=== PATIENT | female | born 1955 | race Caucasian/White ===

== ENCOUNTER 2018-01-01 08:50 | Outpatient (CLI) | payer OTHER, SELFPAY ==
[2018-01-01] VITALS (16 sets, daily range): BP systolic 121–155; BP diastolic 49–96; PULSE 82–93; RESP 16–18; TEMP 36.2; O2SAT 95–100
--- NOTE | 2018-01-01 08:51 | DI.RAD.S_ITS ---
PROCEDURE: PAIN L/S TRANSFORAMINAL INJECT INDICATIONS: LUMBOSACRAL RIDUCULOPATHY FINDINGS: Fluoroscopic spot filming was performed to verify placement of spinal needles at the L4-L5 level(s), as labeled on the films. Appropriate location(s) of the needle tip(s) was confirmed by injection of iodinated contrast. IMPRESSION: Fluoroscopy for pain management. Dictated by: Mary Vick M.D. on 01/01/2018 at 16:27 Approved by: Mary Vick M.D. on 01/01/2018 at 16:28
--- NOTE | 2018-01-01 10:02 | P.PCN_ITS ---
Procedures Date/Time Date of procedure: 01/01/18 Time of procedure: 10:30 General Procedure description: PREOP DIAGNOSIS 1. FORMAINAL STENOSIS WITH LE SYMPTOMS, POST OP DIAGNOSIS 1. FORMAINAL STENOSIS WITH LE SYMPTOMS, PROCEDURES 1.FLUOROSCOPICALLY GUIDED CONTRAST CONTROLLED TRANSFORAMINAL EPIDURAL STEROID INJECTION - RIGHT L4/5 TFESI PHYSICIAN: Luc Ibanez DO INDICATIONS: Ophelia is referred by for treatment of Foraminal Stenosis with Right LE Symptoms FINDINGS Foraminal Nerve Root Compression secondary to disc disease and facet hypertrophy DESCRIPTION OF PROCEDURE Following denial of allergy and review of potential side effects and complications, including, but not necessarily limited to, infection, allergic reaction, local tissue breakdown, stroke, temporary or permanent nerve injury, paralysis, and possible , the patient indicated that the patient understood and agreed to proceed. An informed consent document was signed by the patient, witnessed by a nurse, and placed in the patient's chart. Additionally, other treatment options including medications, modalities, and physical therapy were reviewed with the patient. Per patient request IV conscious sedation was administered via 5mg Versed. The patient remained conversant throughout the procedure with stable vital signs. In the prone position following sterile prep and drape of the lumbar region, the right L4/5 posterior neuroforamen was identified fluoroscopically. The skin was anesthetized via a 25-gauge 1.5-inch needle with 1% lidocaine solution. At this point, a 25-gauge 3.5-inch spinal needle was atraumatically introduced and advanced under fluoroscopic guidance through the posterior right L4/5 neuroforamen to approximately the anterior aspect of the canal. Depth was confirmed on lateral view. Following negative aspiration, injection of approximately 1.5 cc of Isovue 200 under live fluoroscopy in the AP view confirmed excellent flow along the nerve root, into the epidural space without vascular or intrathecal uptake observed Radiological data, including multiple fluoroscopic views of the lumbosacral spine, reveal a spinal needle at the right L4/5 posterior neuroforamen. Subsequent views show flow of contrast material flowing superiorly and inferiorly along the nerve root confirming epidural flow. Subsequently, a test dose of 1.5 cc of 1% lidocaine solution was administered and patient was observed for two minutes for signs or symptoms of complications , including abdominal pain, shortness of breath, bilateral upper or lower extremity weakness, nausea and vomiting, prior to steroid injection. At this point, a total of 3 cc or 20 mg of dexamethasone and 80mg Depo Medrol was injected without incident. The patient was then transferred to the recovery area where they were observed for an appropriate time after the injection. The patient reported a VAS score of 7 prior to the procedure and a post-procedure VAS of 0. Total Fluoroscopy Time: 20.9 seconds Total Conscious Sedation Time: 24min POST OP INSTRUCTIONS The patient was provided a Pain Log to continue to record their response to the target-specific procedure prior to follow-up visit with their referring physician. Additionally, specific post-injection care instructions and a contact number to our office were provided if concerns arise regarding possible complications associated with the procedure are suspected. Luc Ibanez, Complications: none
[2018-01-01] MEDS: MIDAZOLAM 5 MG/5 ML VIAL IV (10:06)
[2018-01-01] MEDS: IOPAMIDOL 15 ML VIAL 3 ML INJ (10:12)
[2018-01-01] MEDS: methylPREDNISolone acetate 80 MG/ML VIAL INJ (10:12)
[2018-01-01] MEDS: DEXAMETHASONE 10 MG/ML VIAL 20 MG INJ (10:12)
[2018-01-01] MEDS: BUPIVACAINE 0.25% (PF) 30 ML VIAL INJ (10:12)
[2018-01-01] MEDS: LIDOCAINE 1% 20 ML INJ 5 ML INJ (10:18)
== END 2018-01-01 11:30 | disposition home or self-care (01) ==
PROVIDERS: PCP Internal Medicine; Visit Provider Physical Medicine & Rehabilitation
DX: M54.17 Radiculopathy, lumbosacral region (principal); M51.36 Other intervertebral disc degeneration, lumbar region
CPT/HCPCS: 64483; 99152; 99153; J1040; J1100; J2250

== ENCOUNTER 2018-04-16 11:01 | Outpatient (CLI) | payer OTHER, SELFPAY ==
[2018-04-16] VITALS (9 sets, daily range): BP systolic 117–149; BP diastolic 84–97; PULSE 80–85; RESP 16–18; TEMP 36.1; O2SAT 96–99
--- NOTE | 2018-04-16 11:03 | DI.RAD.S_ITS ---
PROCEDURE: PAIN L/S FACET INJ/BLK 1ST TRICE COMPARISON: None. INDICATIONS: LUMBOSACRAL SPONDYLOSIS FINDINGS: Right-sided L4-5 and L5-S1 needle tip localization is documented. IMPRESSION: Successful right-sided needle tip localization for facet epidural steroid injection. Dictated by: Tomas Downs M.D. on 04/16/2018 at 12:57 Approved by: Tomas Downs M.D. on 04/16/2018 at 12:58
[2018-04-16] MEDS: MIDAZOLAM 5 MG/5 ML VIAL IV (11:40)
[2018-04-16] MEDS: IOPAMIDOL 15 ML VIAL 3 ML INJ (11:53)
[2018-04-16] MEDS: LIDOCAINE 1% 20 ML INJ 10 ML INJ (11:54)
[2018-04-16] MEDS: BETAMETHASONE 30 MG/5 ML MDV 12 MG INJ (11:54)
[2018-04-16] MEDS: BUPIVACAINE 0.5% (PF) VIAL 2 ML INJ (11:54)
--- NOTE | 2018-04-16 12:02 | PC.NURSE ---
pt safely got off table and into the w/c for transport to the pre procedure room. VSS, no apparent distress and pt on room air maintaining her oxygen.
--- NOTE | 2018-04-16 12:06 | P.PCN_ITS ---
Procedures Date/Time Date of procedure: 04/16/18 Time of procedure: 12:05 General Procedure description: PREOP DIAGNOSIS 1. FACET ARTHROPATHY 2. AXIAL LBP 3. MULTILEVEL DDD POST OP DIAGNOSIS 1. FACET ARTHROPATHY 2. AXIAL LBP 3. MULTILEVEL DDD PROCEDURES 1. FLUORSCOPICALLY GUIDED CONTRAST CONTROLLED FACET JOINT INJECTIONS BILATERAL L4/5, L5/S1 PHYSICIAN: Luc Ibanez, DO INDICATIONS Ophelia is referred by Dr. Garland for treatment of Axial LBP FINDINGS Multilevel Facet Arthropathy with Clinically significant axial LBP DESCRIPTION OF PROCEDURE Fluoroscopically guided, contrast-controlled bilateral L4/5, L5/S1 facet joint injections. Following denial of allergy and review of potential side effects and complications, including, but not necessarily limited to, infection, allergic reaction, local tissue breakdown, stroke, temporary or permanent nerve injury, paralysis, and possible , the patient indicated that the patient understood and agreed to proceed. An informed consent document was signed by the patient, witnessed by a nurse, and placed in the patient's chart. Additionally, other treatment options including medications, modalities, and physical therapy were reviewed with the patient. After review of previous anaesthesic history and IV conscious sedation the patient was deemed safe to proceed with todays procedure with IV conscious sedation as ASA class II designation. Safety time-out was performed to confirm patient ID, procedure to be performed and site of procedure. IV sedation was accomplished with a combination of 5mg was administered by the RN after DO order , titrated to patient comfort during the course of the procedure while the patient remained responsive to all verbal commands In the prone position, following sterile prep and drape of the lumbar region, the posterior aspect of the L4/5, L5/S1 facet joints were identified fluoroscopically. The skin was anesthetized via a 25-gauge 1.5-inch needle with 1% lidocaine solution into the corresponding facet joints. At this point, a 22-gauge 3.5-inch spinal needle was atraumatically introduced and advanced under fluoroscopic guidance into the corresponding facet joints. Following negative aspiration, injections of approximately 0.2-cc of Isovue 200 confirmed interarticular placement without vascular uptake. The identical procedure was then performed at the L4/5, L5/S1 facet joints on the left. Radiological data, including multiple fluoroscopic views of the lumbosacral spine, reveal a spinal needle at the L4/5, L5/S1 facet joints bilaterally. Subsequent views show flow of contrast material both superiorly and inferiorly within the joint space without vascular or intrathecal uptake. At this point, a total of 0.5 cc including a mixture of 0.25cc Marcaine and 0.25cc betamethasone was injected without complication into each of the corresponding facet joints. The patient tolerated the procedure well without signs or symptoms of complications prior to transfer to the recovery area continued monitoring without incident. The patient was then transferred to the recovery area where they were observed for an appropriate period of time after the injection. The patient reported a VAS score of 7 prior to the procedure and a post- procedure VAS of 0. Total Fluoroscopy Time: 20.3 seconds Total Conscious Sedation Time: 24min POST OP INSTRUCTIONS The patient was provided a Pain Log to continue to record their response to the target-specific procedure prior to follow-up visit with their referring physician. Additionally, specific post-injection care instructions and a contact number to our office were provided if concerns arise regarding possible complications associated with the procedure are suspected. Luc Ibanez, Complications: none
--- NOTE | 2018-04-16 12:08 | PC.NURSE ---
pt arrived in post op area in stable condition
== END 2018-04-16 12:25 | disposition home or self-care (01) ==
LOC: RAD 11:02
PROVIDERS: PCP Internal Medicine; Visit Provider Physical Medicine & Rehabilitation
DX: M51.16 Intervertebral disc disorders with radiculopathy, lumbar region (principal); M51.17 Intervertebral disc disorders with radiculopathy, lumbosacral region; M47.26 Other spondylosis with radiculopathy, lumbar region; M47.27 Other spondylosis with radiculopathy, lumbosacral region; M54.5 Low back pain
CPT/HCPCS: 64493; 64494; 99152; J0702; J2250

== ENCOUNTER 2018-06-11 09:27 | Outpatient (CLI) | payer OTHER, SELFPAY ==
--- NOTE | 2018-06-11 09:32 | DI.RAD.S_ITS ---
PROCEDURE: PAIN L/S FACET INJ/BLK 1ST TRICE COMPARISON: [facility], , PAIN L/S FACET INJ/BLK 1ST TRICE, 04/16/2018, 11:53. INDICATIONS: RADICULOPATHY FINDINGS: Fluoroscopic spot filming was performed to verify placement of spinal needles at the L4, L5, S1 level(s), as labeled on the films. Appropriate location(s) of the needle tip(s) was confirmed by injection of iodinated contrast. Dictated by: Randy Upton M.D. on 06/11/2018 at 16:33 Approved by: Randy Upton M.D. on 06/11/2018 at 16:34
[2018-06-11 10:03] VITALS: BP 129/87; PULSE 83; RESP 18; TEMP 36.6; O2SAT 96
[2018-06-11] MEDS: MIDAZOLAM 5 MG/5 ML VIAL IV (10:38)
[2018-06-11 10:40] VITALS: BP 133/90; PULSE 86; RESP 16; O2SAT 96
[2018-06-11 10:45] VITALS: BP 115/76; BP 127/77; PULSE 85; PULSE 89; RESP 17; RESP 18; O2SAT 94; O2SAT 95
[2018-06-11 10:50] VITALS: BP 121/77; PULSE 84; RESP 15; O2SAT 94
[2018-06-11] MEDS: LIDOCAINE 1% 20 ML INJ 10 ML INJ (10:58)
[2018-06-11] MEDS: BUPIVACAINE 0.5% (PF) VIAL 2 ML INJ (10:58)
[2018-06-11] MEDS: IOPAMIDOL 15 ML VIAL 3 ML INJ (10:58)
[2018-06-11] MEDS: BETAMETHASONE 30 MG/5 ML MDV 12 MG INJ (10:59)
--- NOTE | 2018-06-11 11:01 | PM.PROC.1 ---
Procedures Date/Time Date of procedure: 06/11/18 Time of procedure: 11:01 General Procedure description: POST OP DIAGNOSIS 1. FACET ARTHROPATHY PROCEDURES 1. BILATERAL- L4, L5 and S1 MB BLOCKS PHYSICIAN: DO YARIEL Young Ophelia is referred by for treatment of Bilateral Axial LBP. DESCRIPTION OF PROCEDURE Fluoroscopically guided, contrast-controlled bilateral L4, L5 and S1 medial branch blocks with 0.5cc of 0.5% Marcaine. Following denial of allergy and review of potential side effects and complications, including, but not necessarily limited to, infection, allergic reaction, local tissue breakdown, nerve injury, paralysis, stroke and possible , the patient indicated that the patient understood and agreed to proceed. An informed consent document was signed by the patient, witnessed by a nurse, and placed in the patient's chart. After review of previous anaesthesic history and IV conscious sedation the patient was deemed safe to proceed with todays procedure with IV conscious sedation as ASA class I
--- NOTE | 2018-06-11 11:02 | PC.NURSE ---
pt tolerated procedure well. able to get off table with one person stand by assist. Pt transferred to pre procedure room via wheelchair and handed off care to Mima CHEUNG for continued monitoring.
[2018-06-11 11:07] VITALS: BP 119/81; PULSE 86; RESP 18; O2SAT 97
--- NOTE | 2018-06-11 11:08 | PC.NURSE ---
accepted care of pt in post proc area in stable condition
[2018-06-11 11:13] VITALS: BP 119/81; PULSE 88; RESP 18; O2SAT 95
--- NOTE | 2018-06-12 16:32 | PC.NURSE ---
Follow up call made and pt reports she is doing really well. She mentioned her hands were shaky for time this morning so she went back to bed and it went away. Otherwise everything is good.
== END 2018-06-11 11:32 | disposition home or self-care (01) ==
LOC: RAD 09:30
PROVIDERS: PCP Internal Medicine; Visit Provider Physical Medicine & Rehabilitation
DX: M47.816 Spondylosis without myelopathy or radiculopathy, lumbar region (principal); M47.817 Spondylosis without myelopathy or radiculopathy, lumbosacral region
CPT/HCPCS: 64493; 64494; 99152; J0702; J2250

== ENCOUNTER 2018-08-06 10:19 | Outpatient (CLI) | payer OTHER, SELFPAY ==
[2018-08-06] VITALS (14 sets, daily range): BP systolic 106–138; BP diastolic 57–93; PULSE 82–89; RESP 16–18; TEMP 36.4; O2SAT 94–100
--- NOTE | 2018-08-06 10:20 | DI.RAD.S_ITS ---
PROCEDURE: PAIN L/S MED/LAT N RFA INDICATIONS: RADICULOPATHY FINDINGS: Fluoroscopic spot filming was performed to verify placement of spinal needles at the L4, L5 and S1 level(s), as labeled on the films. Appropriate location(s) of the needle tip(s) was confirmed by injection of iodinated contrast. Dictated by: Randy Upton M.D. on 08/06/2018 at 12:43 Approved by: Randy Upton M.D. on 08/06/2018 at 12:46
[2018-08-06] MEDS: MIDAZOLAM 5 MG/5 ML VIAL IV (11:00)
[2018-08-06] MEDS: LIDOCAINE 1% 20 ML INJ 10 ML INJ (11:13)
[2018-08-06] MEDS: BETAMETHASONE 30 MG/5 ML MDV 12 MG INJ (11:15)
[2018-08-06] MEDS: BUPIVACAINE 0.5% (PF) VIAL 5 ML INJ (11:16)
[2018-08-06] MEDS: fentaNYL 100 MCG/2 ML INJ IV (11:16)
--- NOTE | 2018-08-06 11:52 | PC.NURSE ---
ASSISTING PT OFF TABLE AND TRANSPORTING PT TO POST PROC AREA IN STABLE CONDITION
--- NOTE | 2018-08-06 11:57 | P.PCN_ITS ---
Procedures Date/Time Date of procedure: 08/06/18 Time of procedure: 11:57 General Procedure description: PREOP DIAGNOSIS 1. RECALCITRANT FACET ARTHROPATHY, POST OP DIAGNOSIS 1. RECALCITRANT FACET ARTHROPATHY PROCEDURES 1. BILATERAL L4 AND L5 MEDIAL BRANCH RADIOFREQUENCY NEUROTOMY AND S1 DORSAL RAMUS BRANCH RADIOFREQUENCY NEUROTOMY, PHYSICIAN: Luc Ibanez DO INDICATIONS: Ophelia is referred by for treatment of facet arthropathy. DESCRIPTION OF PROCEDURE Right L4 and L5 medial branch radiofrequency neurotomy and right S1 dorsal ramus radiofrequency neurotomy under fluoroscopy with conscious sedation. The patient is well known to this clinic having undergone previous facet injections with good but temporary relief. The patient has experienced appropriate, concordant relief with previous facet and median branch blocks but the patient's pain has been recalcitrant to further conservative measures. Therefore, based upon the patient's relief and persistent symptoms, the patient is considered an appropriate candidate for facet rhizotomy. All of the patient's questions regarding the risks versus benefits of the procedure, including, but not limited to, bleeding, infection, temporary as well as lasting nerve injury, paralysis, stroke, and , as well treatment alternatives were answered to satisfaction. After obtaining informed consent, denial of pertinent drug allergies, as well as being made aware of the potential risks of bleeding, infection, spinal cord trauma, paralysis, temporary and permanent nerve damage, seizure, stroke, and possible , the patient was brought to the fluoroscopy suite and positioned prone on the fluoroscopy table. The lumbar region was prepped with Betadine and covered with a fenestrated drape in the usual sterile fashion. Appropriate monitors applied including pulse oximeter, pulse, and blood pressure for regular monitoring throughout the procedure. After review of previous anaesthesic history and IV conscious sedation the patient was deemed safe to proceed with todays procedure with IV conscious sedation as ASA class II designation. Safety time-out was performed to confirm patient ID, procedure to be performed and site of procedure. IV sedation was accomplished with a combination of 5mg of Versed and 50mcg of Fentanyl administered by the RN after DO order, titrated to patient comfort during the course of the procedure while the patient remained responsive to all verbal commands. After local infiltration using 1% lidocaine, under fluoroscopic guidance, a 10- cm RF insulated needle with a 10-mm active tip was positioned parallel to the junction of the right sacral ala and the superior articulating process where the S1 dorsal ramus resides. Needle placement was confirmed with sensory stimulation at 50 Hz, with motor stimulation of .5v on the right which produced local stimulation without radicular component. The stimulation was then increased to 1.5v with, once again, only local multifidus stimulation without radicular component. This was then followed by two discreet lesions performed at 80 degrees Celsius for 90 seconds each. The needle was then removed and the identical procedure was performed along the length of the right L5 medial branch with motor stimulation at .7v on the right. The identical procedure was once again performed along the length of the right L4 medial branch with motor stimulation of .5v on the right. The identical procedure was repeated on the left. The patient tolerated the procedure well without signs or symptoms of complications prior to transfer to the recovery area continued monitoring without incident. The patient was then transferred to the recovery area where they were observed for an appropriate period of time after the injection. The patient reported a VAS score of 9 prior to the procedure and a post-procedure VAS of 0. Total Fluoroscopy Time: 22.7 seconds Total Conscious Sedation Time: 34min POST OP INSTRUCTIONS The patient was provided a Pain Log to continue to record the patient's response to the target-specific procedure prior to the patient's follow-up visit with the referring physician. Additionally, specific post-injection care instructions and a contact number to our office were provided if concerns arise regarding possible complications associated with the procedure are suspected. Luc Ibanez DO Complications: none
--- NOTE | 2018-08-07 12:41 | PC.NURSE ---
FOLLOW UP CALL MADE, PT STATES SHE IS DOING WELL BUT GETS SORE WHEN SHE IS UP AND ABOUT FOR LONG PERIODS OF TIME. I ASSURED HER THAT SORENESS IS TO BE EXPECTED FOR THE NEXT FEW DAYS AND ENCOURAGED HER TO TAKE OTC PAIN RELIEVERS FOR DISCOMFORT. PT VERBALIZED UNDERSTANDING OF INSTRUCTIONS AND DENIED OTHER QUESTIONS/CONCERNS.
== END 2018-08-06 12:17 ==
LOC: RAD 10:20
PROVIDERS: PCP Internal Medicine; Visit Provider Physical Medicine & Rehabilitation
DX: M47.817 Spondylosis without myelopathy or radiculopathy, lumbosacral region (principal); M47.816 Spondylosis without myelopathy or radiculopathy, lumbar region
CPT/HCPCS: 64635; 64636; 99152; 99153; J0702; J2250; J3010

== ENCOUNTER → 2019-01-09 12:29 | Outpatient (CLI) | payer OTHER, SELFPAY ==
--- NOTE | 2019-01-09 12:31 | DI.US.S_ITS ---
ULTRASOUND OF LEFT BREAST: 01/09/2019 CLINICAL: Palpable left breast lump. Comparison is made to exams dated: 01/09/2019 mammogram and 06/11/2014 mammogram - [facility]. Color flow and real-time ultrasound of the left breast were performed. [place] scale images of the real-time examination were reviewed. There is 2 cm x 2 cm x 1.3 cm irregular mass in the left breast at 2 o'clock posterior depth 7 cm from the nipple. This irregular mass is hypoechoic. This correlates as palpated, with mammography findings, and area of clinical concern. Color flow imaging demonstrates that there is vascularity present. There also is a lymph node with eccentric cortical thickening in the left axillary tail. This lymph node is hypoechoic with fatty hilum. IMPRESSION: HIGHLY SUGGESTIVE OF MALIGNANCY The 2 cm x 2 cm x 1.3 cm irregular mass in the left breast at 2 o'clock posterior depth is highly suggestive of malignancy. An ultrasound guided biopsy is recommended. The lymph node with eccentric cortical thickening in the left axillary tail is suspicious of malignancy. An ultrasound guided biopsy is recommended. Findings were discussed with the patient by Dr. Upton. The patient agrees to proceed with the biopsy. This exam was interpreted at Station ID: [id number]. Electronically Signed By: Albert Menard M.D. aty/:01/09/2019 14:21:39 letter sent: Biopsy Required Ultrasound BI-RADS: 5 Highly suggestive of malignancy
--- NOTE | 2019-01-09 12:31 | DI.MG.S_ITS ---
BILATERAL DIGITAL DIAGNOSTIC MAMMOGRAM 3D/2D: 01/09/2019 CLINICAL: Left breast lump. Comparison is made to exam dated: 06/11/2014 [facility]. The tissue of both breasts is heterogeneously dense. This may lower the sensitivity of mammography. There is a new 2.1 cm x 2.5 cm irregular high density mass with a spiculated margin in the left axillary tail. This correlates as palpated. There is architectural distortion and possible axillary adenopathy associated with the mass. No other significant masses, calcifications, or other findings are seen in either breast. IMPRESSION: INCOMPLETE: NEEDS ADDITIONAL IMAGING EVALUATION The new 2.1 cm x 2.5 cm irregular high density mass is indeterminate. Further evaluation by sonogram is recommended which is scheduled to immediately follow this examination. This exam was interpreted at Station ID: [id number]. NOTE: For mammograms, a report in lay terms will be sent to the patient. Approximately 15% of breast malignancies will not be visualized mammographically. In the management of a palpable breast mass, a negative mammogram must not discourage biopsy of a clinically suspicious lesion. Electronically Signed By: Albert Menard M.D. aty/:01/09/2019 13:41:16 ACR BI-RADS Category 0: Incomplete [id number]
== END ==
PROVIDERS: PCP Internal Medicine; Visit Provider Internal Medicine
DX: R92.8 Other abnormal and inconclusive findings on diagnostic imaging of breast (principal); N63.21 Unspecified lump in the left breast, upper outer quadrant; N63.32 Unspecified lump in axillary tail of the left breast
CPT/HCPCS: 76642; 77066; G0279

== ENCOUNTER → 2019-01-22 07:25 | Outpatient (CLI) | payer OTHER, SELFPAY ==
--- NOTE | 2019-01-22 | DI.US.S_ITS ---
ULTRASOUND GUIDED BIOPSY LEFT BREAST USING VACUUM DEVICE WITH MARKING DEVICE INSERTED: 01/22/2019 CLINICAL: Left axillary node biopsy. PATIENT CONSENT: Risks (minor bleeding, infection, vasovagal reaction and repeat procedure), benefits and alternatives were explained to the patient and written informed consent was obtained. Correlation is made to exams dated: 01/22/2019 mammogram, 01/09/2019 ultrasound, 01/09/2019 mammogram, and 06/11/2014 mammogram - [facility]. An ultrasound guided biopsy using real-time ultrasound was performed for the 2 cm x 2 cm x 1.3 cm irregular shaped mass located in the left breast at 2 o'clock posterior depth 7 cm from the nipple. The skin was prepped in the usual manner. Local anesthetic was administered to the access site. The abnormality was approached from the lateral aspect. A biopsy needle was placed adjacent to the abnormality under ultrasound guidance. Once the needle was documented to be in the correct location, five specimens were obtained using the Mammotome biopsy system. A clip was inserted into the biopsy cavity. The specimens were sent to the laboratory for pathological analysis. IMPRESSION: ULTRASOUND GUIDED BIOPSY MALIGNANT Ultrasound guided biopsy of the 2 cm x 2 cm x 1.3 cm mass in the left breast at 2 o'clock posterior depth 7 cm from the nipple was successful. Pathology indicates malignant invasive ductal carcinoma (ID). Pathology results are concordant with imaging findings. A surgical/oncologic consultation is recommended. This exam was interpreted at Station ID: [id number]. Randy gannon,aty/:02/04/2019 23:53:38
--- NOTE | 2019-01-22 | DI.MG.S_ITS ---
UNILATERAL LEFT DIGITAL DIAGNOSTIC MAMMOGRAM POST-NEEDLE BIOPSY: 01/22/2019 CLINICAL: Left breast mass. Comparison is made to exams dated: 01/09/2019 mammogram and 06/11/2014 mammogram - [facility]. The tissue of left breast is heterogeneously dense. This may lower the sensitivity of mammography. There is a marker clip in the appropriate position in the left breast at 2 o'clock posterior depth. This marker clip placement is at the biopsy site. There also is a marker clip in the appropriate position in the left axillary region seen on the craniocaudal view only. This marker clip placement is at the biopsy site. IMPRESSION: POST PROCEDURE MAMMOGRAM FOR MARKER PLACEMENT There was a successful marker clip placement in the left breast at 2 o'clock posterior depth. There was a successful marker clip placement in the left axillary region seen on the craniocaudal view only. This exam was interpreted at Station ID: [id number]. NOTE: For mammograms, a report in lay terms will be sent to the patient. Approximately 15% of breast malignancies will not be visualized mammographically. In the management of a palpable breast mass, a negative mammogram must not discourage biopsy of a clinically suspicious lesion. Electronically Signed By: Randy gannon/:01/22/2019 16:53:19 ACR BI-RADS Category Post-procedure mammogram for marker placement
--- NOTE | 2019-01-22 | PATH_ITS ---
[facility] Accession Number: [id number] . 01 Material submitted: . PART A: axilla - LEFT AXILLARY MASS, POSSIBLE LYMPH NODE PART B: breast - LEFT BREAST MASS 2 O'CLOCK 7 CM FN . 02 Diagnosis: A. Left Axillary Mass, Possible Lymph Node: Procedure: Needle biopsy. Specimen laterality: Left. Tumor site: Left axillary region. Histologic type: Invasive ductal carcinoma. Histologic grade: [place] grade 2 of 3 / intermediate grade. Tubules: 2 of 3. Nuclear features: 2 of 3. Mitoses: 2 of 3. Overall grade: Grade 2 (6 of 9) DCIS: Not identified. Lymphovascular involvement: Not identified. Calcifications: Not identified. Other: No lymph node tissue identified in the biopsy. . B. Left Breast Mass at 2 o'clock, 7 cm from Nipple: Procedure: Needle biopsy. Specimen laterality: Left. Tumor site: 2 o'clock, 7 cm from nipple. Histologic type: Invasive ductal carcinoma. Histologic grade: [place] grade 2 of 3 / intermediate grade. Tubules: 2 of 3. Nuclear features: 2-3 of 3. Mitoses: 2 of 3. Overall grade: Grade 2 (6-7 of 9, grade 2). DCIS: Not identified. Lymphovascular involvement: Not identified. Calcifications: Not identified. MRV/01/24/2019 . 02 Comment: Results were discussed with Dr. Bolaños on 01/23/2019 at approximately 2:20 p.m. . This case was reviewed by my colleagues, Drs. Ko and Mich, who concur with this interpretation. . 02 Electronically signed: . Natalee Poe MD, Pathologist NPI- [id number] . 01 Gross description: . Received two formalin-filled containers, both labeled with the patient's name: . A. In a container labeled LT axilla are multiple light fong, cylindrical-shaped portions of tissue with an average diameter of 0.1 cm and range in length from 0.6 to 0.8 cm. Entirely submitted in cassette A. B. In a container labeled LT breast, the sample is received with a plastic filter, sample loose in container. The specimen consists of multiple fragments of cylindrical-shaped yellow-fong soft tissue, average diameter of 0.2 cm to 0.3 cm and range in length from 0.2 cm to 1.3 cm. The specimen is entirely submitted in cassette B. . Collection date: 01/22/2019. Possible collection time: 11:25. Total fixation time: 12 hours, up to 24. ([id number]) /FRR . 02 Microscopic: . CAP BREAST BIOMARKER REPORTING TEMPLATE: . Estrogen Receptor (ER) Status: Positive, 95%. Average intensity of staining: Strong. Primary antibody: SP1 Progesterone Receptor (PgR) Status: Positive, 60%. Average intensity of staining: Strong. Primary antibody: 1E2 HER2 (by immunohistochemistry): Negative, 1+. Primary antibody: 4B5 . . Cold Ischemia and Fixation Times: Meets requirements in the latest version of the ASCO/CAP guidelines. Testing performed on Block Number: A1 . Estrogen Receptor (ER) Status: Positive, greater than 95%. Average intensity of staining: Strong. Primary antibody: SP1 Progesterone Receptor (PgR) Status: Positive, 90%. Average intensity of staining: Strong. Primary antibody: 1E2 HER2 (by immunohistochemistry): Negative, 1+ Primary antibody: 4B5 . Cold Ischemia and Fixation Times: Meets requirements in the latest version of the ASCO/CAP guidelines. Testing performed on Block Number: B1 . TECHNICAL NOTE: The scoring criteria for breast biomarkers by immunohistochemistry is based on the current ASCO/CAP guidelines (Tereza et al, Arch Pathol Lab Med 2010: 134(6): 907-922 / Niya Villalobos al, Arch Pathol Lab Med 2014: 138(2): 241-256). Deparaffinized sections of formalin fixed tissue (along with appropriate positive controls) are incubated with the above antibody(s). Using the automated Churchill stainer, tissue is incubated with the designated antibody* which is then localized by a non-biotin, dual polymer detection system. The external controls are reviewed for appropriate reactivity and found to be adequate. Results on the target cell population are indicated above. These tests have not been validated on decalcified tissue. * This test was developed and its performance characteristics determined by [facility]. It has not been cleared or approved by the U.S. Food and Drug Administration. The FDA has determined that such clearance or approval is not necessary. This test is used for clinical purposes. It should not be regarded as investigational or for research. . 02 Pathologist provided ICD-10: C50.912 . 02 CPT . 630731, 588472, 492032, 940117, 891655, 814068, 793956, 058381 Performed at: 01 [facility] [address] [id number] MD Giovanny Simms MD Phone: [phone] Performed at: [facility] [address] [address] [place], [place] [id number] MD Kim Epps MD Phone: [phone]
--- NOTE | 2019-01-22 | DI.US.S_ITS ---
ULTRASOUND GUIDED BIOPSY LEFT BREAST: 01/22/2019 CLINICAL: Left breast mass. Left axillary node biopsy. PATIENT CONSENT: Risks (minor bleeding, infection, vasovagal reaction and repeat procedure), benefits and alternatives were explained to the patient and written informed consent was obtained. Correlation is made to exams dated: 01/22/2019 mammogram, 01/09/2019 ultrasound, 01/09/2019 mammogram, and 06/11/2014 mammogram - [facility]. A ultrasound guided biopsy using real-time ultrasound was performed for irregular shaped mass located in the left axillary tail. This was adjacent to the previously seen abnormality which was planned to be biopsied, possibly the same lymph node. However it was not seen on the prior study, and potentially new. It measures 10 x 8 x 6 mm. Given the larger size and amenable appearance, this lesion was instead biopsied instead of the much smaller adjacent lesion . The skin was prepped in the usual manner. Local anesthetic was administered to the access site. A small incision was made in the breast. The abnormality was approached from the lateral aspect. A biopsy needle was placed in the abnormality under ultrasound guidance. Once the needle was documented to be in the correct location, 7 specimens were obtained using a BARD biopsy device. A clip was inserted into the biopsy cavity. The specimens were sent to the laboratory for pathological analysis. IMPRESSION: ULTRASOUND GUIDED BIOPSY MALIGNANT Ultrasound guided biopsy of the mass/adenopathy in the left axillary tail was successful. 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 Pathology results are concordant with imaging findings. A surgical/oncologic consultation is recommended. This exam was interpreted at Station ID: [id number]. Randy gannon,aty/:02/04/2019 23:51:53
== END ==
PROVIDERS: PCP Internal Medicine; Visit Provider Internal Medicine
DX: C50.412 Malignant neoplasm of upper-outer quadrant of left female breast (principal); C77.3 Secondary and unspecified malignant neoplasm of axilla and upper limb lymph nodes; Z17.0 Estrogen receptor positive status [ER+]
CPT/HCPCS: 19083; 38505; 76942; 77065

== ENCOUNTER → 2019-02-03 16:24 | Outpatient (CLI) | payer MEDICARE, OTHER, SELFPAY ==
[2019-02-03 16:53] LABS: Add Manual Diff / Slide Review NO; Basophils Absolute Auto 100 /uL (0-100); Basophils Percent Auto 0.6 % (0-2); Eosinophils Absolute Auto 200 /uL (0-450); Eosinophils Percent Auto 1.8 % (2-4); Hematocrit 43.1 % (36-46); Hemoglobin 14.3 g/dL (12.0-16.0); Lymphocytes Absolute Auto 2800 /uL (1100-4500); Lymphocytes Percent Auto 31.2 % (25-40); Mean Corpuscular HGB Conc 33.1 % (30-36); Mean Corpuscular Volume 93.7 fL (80-100); Monocytes Absolute Auto 600 /uL (0-900); Monocytes Percent Auto 6.4 % (3-14); Neutrophils Absolute Auto 5400 /uL (1500-7000); Platelet Count 322 X10^3/uL (150-400); Red Cell Distribution Width 14.3 % (11.6-14.8)
[2019-02-03 17:02] LABS: Alanine Aminotransferase 39 IU/L (9-52); Albumin 4.7 g/dL (3.5-5.0); Albumin Globulin Ratio 1.6 (1.0-2.8); Alkaline Phosphatase 91 U/L (38-126); Aspartate Aminotransferase 29 IU/L (14-36); BUN Creatinine Ratio 25.6 (6-22); Bilirubin Total 0.5 mg/dL (0.2-1.3); Blood Urea Nitrogen 23 mg/dL (7-17); Calcium 10.2 mg/dL (8.4-10.2); Carbon Dioxide 30 mmol/L (22-32); Chloride 98 mmol/L (98-107); Estimated Glomerular Filt Rate > 60.0 mL/min (>60); Globulin 2.9 g/dL (1.7-4.1); Glucose 109 mg/dL (80-110); HEMOLYSIS < 15 (0-50); Potassium 4.7 mmol/L (3.4-5.1); Sodium 139 mmol/L (137-145); Total Protein 7.6 g/dL (6.3-8.2)
== END ==
PROVIDERS: PCP Internal Medicine; Visit Provider Internal Medicine Hematology & Oncology
DX: C50.912 Malignant neoplasm of unspecified site of left female breast (principal)
CPT/HCPCS: 36415; 80053; 85025

== ENCOUNTER → 2019-02-05 13:52 | Outpatient (CLI) | payer MEDICARE, OTHER, SELFPAY ==
--- NOTE | 2019-02-05 13:55 | DI.CT.S_ITS ---
PROCEDURE: CT CHEST ABD PEL W CON INDICATIONS: breast cancer, node positive TECHNIQUE: After the administration of oral and intravenous contrast, 5 mm thick sections acquired from the lung apices to the symphysis. 5 mm coronal and sagittal reformats were performed, with additional 7 mm coronal MIP reformats through the lungs. For radiation dose reduction, the following was used: automated exposure control, adjustment of mA and/or kV according to patient size. COMPARISON: [facility], , MM DIAGNOSTIC MAMMO BI, 01/09/2019, 13:13. [facility], US BIOPSY OF AXILLA ONLY, 01/22/2019, 7:48. [facility], US BX BREAST PERC W VAC DEVICE, 01/22/2019, 7:48. FINDINGS: Image quality: Excellent. CHEST: Lungs and pleura: No acute airspace opacities. No pleural effusions or pneumothorax. Central and peripheral airways appear patent and normal in caliber. Mediastinum: Heart size is normal. No pericardial effusion. No mediastinal or hilar adenopathy by size criteria. Thoracic aorta and central pulmonary arteries are normal in size. Esophagus is normal in caliber. No hiatal hernia. Chest wall: No axillary or supraclavicular adenopathy by size criteria but may previously biopsied left axillary lymph node can be identified by the biopsy marker in place. Also, the left breast mass lesion measuring approximately 2 cm contains a biopsy marker.. Thyroid gland appears normal where well seen. ABDOMEN: Solid organs: Liver is normal in size and enhancement. There is a water density cyst at the caudate lobe measuring 2 cm. No hepatic metastatic disease is seen. Gallbladder appears normal. Biliary system is non dilated. Pancreas enhances normally. Spleen is normal in size and enhancement. No adrenal nodules. Kidneys demonstrate normal size and enhancement, without hydronephrosis. Peritoneum and bowel: Bowel loops demonstrate normal wall thickness and caliber. No free fluid or air. Nodes and vessels: No retroperitoneal or mesenteric adenopathy by size criteria. Aorta and inferior vena cava are normal in size. Miscellaneous: No ventral hernias. PELVIS: Genitourinary: Bladder wall thickness is normal. Apparent prior hysterectomy. Miscellaneous: No inguinal hernias or adenopathy. Bones: No suspicious bony lesions. Degenerative disc disease and facet osteoarthritis along the spine is relatively prominent in this patient, but no osteolytic or blastic bone lesions are found. The No vertebral body compression fractures. IMPRESSION: Left breast mass which has been previously biopsied at the upper outer quadrant is again noted with biopsy clip at its posterior border. Left small rounded lymph node at the axilla also has been previously marked by a biopsy marker and can be seen to not have enlarged in size. No enlarged adenopathy has developed, no distant metastatic disease is found. A nuclear medicine bone scan is not available for review. Dictated by: Tomas Downs M.D. on 02/05/2019 at 17:29 Approved by: Tomas Downs M.D. on 02/05/2019 at 17:36
== END ==
PROVIDERS: PCP Internal Medicine; Visit Provider Internal Medicine Hematology & Oncology
DX: C50.912 Malignant neoplasm of unspecified site of left female breast (principal)
CPT/HCPCS: 71260; 74177; Q9967

== ENCOUNTER → 2019-02-12 14:28 | Outpatient (CLI) | payer MEDICARE, OTHER, SELFPAY ==
--- NOTE | 2019-02-12 | DI.MRI.S_ITS ---
PROCEDURE: MR HEAD/BRAIN WO/W CON INDICATIONS: LEFT BREAST CANCER TECHNIQUE: Noncontrast axial T1 spin echo, axial T2 fast spin echo, sagittal and axial FLAIR, coronal T2 fast spin echo, axial gradient echo, axial diffusion and ADC through the brain. After the administration of contrast, axial and coronal T1 spin echo with fat saturation through the brain. COMPARISON: None. FINDINGS: Image quality: Excellent. CSF spaces: Basal cisterns are patent. No extra-axial fluid collections. Ventricles are normal in size and shape. Brain: No midline shift. No intracranial bleeds or masses. No abnormal intracranial enhancement. There is cerebral volume loss for age. There is periventricular white matter chronic small vessel ischemic change. The brainstem appears normal. Diffusion-weighted images demonstrate no acute ischemic insults. No chronic ischemic insults. Normal intravascular flow voids are present. Skull and face: Calvarial marrow is normal in signal. Orbits appear normal. Sinuses: Sinuses and mastoids appear clear. IMPRESSION: Unremarkable intracranial study, without findings of intracranial metastatic disease. Dictated by: Zeus Gregory M.D. on 02/12/2019 at 16:18 Approved by: Zeus Gregory M.D. on 02/12/2019 at 16:20
--- NOTE | 2019-02-12 | DI.MRI.S_ITS ---
BREAST MRI OF BOTH BREASTS: 02/12/2019 CLINICAL: Left breast cancer. TECHNIQUE: The patient was placed prone in a dedicated breast imaging coil. Precontrast axial STIR and 3D FLASH without fat saturation sequences were obtained. Both before and after bolus injection of contrast, sequential 1-minute axial 3D FLASH with fat saturation sequences for 3 time points, with subtraction images and maximum intensity projections (MIP's) generated. Delayed sagittal FLASH images with fat saturation were also obtained. Computer-aided detection, including computer algorithm analysis of MRI image data for lesion detection and characterization, pharmacokinetic analysis, with further physician review for interpretation, was performed. COMPARISON: [facility], , MM DIAGNOSTIC MAMMO BI, 01/09/2019, 13:13. [facility], US, US BREAST LT LIMITED, 01/09/2019, 13:44. FINDINGS: Image quality: Excellent. There is mild background parenchymal enhancement. There is heterogeneous fibroglandular tissue. Right breast: There is no suspicious mass, architectural distortion, or non-mass enhancement. No right sided axillary or internal mammary chain adenopathy. Left breast: Irregular left breast mass with spiculated margins and heterogeneous enhancement demonstrating mixed enhancement kinetics including washout (type III) kinetics. This measures approximately 3.4 cm in craniocaudal dimension and 2.4 x 2.8 cm in transverse dimension. This mass is present within the middle to posterior third depth of the upper, outer quadrant of the left breast at approximately the 2:00 position and 7 cm from the nipple. This mass is a biopsy-proven malignant neoplasm (invasive ductal carcinoma). Several enlarged left axillary lymph nodes are noted with the largest containing a central focus of susceptibility artifact compatible with biopsy proven metastatic lymph node. Additionally, there is a prominent, 10 mm intramammary lymph node identified in the upper outer quadrant visualized in between the mass and axillary adenopathy with prominent feeding vessel visualized between this lymph node and the mass. This is also suspicious for a metastatic lymph node. No internal mammary chain adenopathy. No other suspicious masses or non-mass enhancement within the left breast. Miscellaneous: Visualized osseous structures demonstrate normal marrow signal intensity. Limited evaluation of the upper abdomen, lower chest, and anterior mediastinal structures also appears unremarkable. IMPRESSION: KNOWN BIOPSY PROVEN MALIGNANCY 1. There is a 3.4 cm irregular mass at the 2:00 position, 7 cm from the nipple correlating with biopsy-proven malignant neoplasm with associated biopsy-proven metastatic left axillary adenopathy. There is a 10 mm intramammary lymph node situated in the left upper outer quadrant between the mass and axillary adenopathy that is also suspicious for metastatic involvement. 2. No MRI evidence for malignancy in the right breast. COMMENT: The imaging literature indicates that a negative contrast breast MRI examination has a high sensitivity and a moderate specificity for detecting and excluding invasive carcinomas to a detection threshold of 3-5 mm; nonetheless, appropriate clinical and mammographic follow-up are recommended. MRI is not sensitive for detecting DCIS (ductal carcinoma in situ) and may not detect large invasive neoplasms that show only minimal enhancement such as mucinous carcinoma. If there are suspicious calcifications or clinically worrisome palpable masses, then biopsy should still be considered. Invasive neoplasms can be hidden by co-existent and benign enhancement caused by mastitis, hormone therapy effects, radiation therapy, , and recent biopsy or surgery. False positive examinations can occur in a number of circumstances, including breasts that have recently been subject to invasive procedures and those that contain atypical ductal hyperplasia, hormonally stimulated glandular tissue, fat necrosis, or radial scars. This exam was interpreted at Station ID: [id number]. Electronically Signed By: Albert Menard M.D. aty/:02/13/2019 07:24:49 ACR BI-RADS Category 6: Known biopsy proven malignancy [id number]
== END ==
PROVIDERS: PCP Internal Medicine; Visit Provider Internal Medicine Hematology & Oncology
DX: C50.912 Malignant neoplasm of unspecified site of left female breast (principal)
CPT/HCPCS: 70553; 77049; A9579

== ENCOUNTER → 2019-02-17 14:33 | Outpatient (CLI) | payer MEDICARE, OTHER, SELFPAY ==
--- NOTE | 2019-02-17 14:35 | DI.ECHO.S_ITS ---
[facility] +---------+ : : [address] : : : : [id number] : : : : Phone: [phone]+ Echocardiogram Report + + :Name: DONALD HERNANDEZ Study Date: 02/17/2019 Height: 66 in : :[facility] Weight: 244 lb : : Gender: Female BSA: 2.2 m2 : :: 1955 Age: 63 yrs BP: 140/84 mmHg: :Reason For Study: Chemotherapy F/U (ICD Code V67.2) : : Performed By: Kristyn Fernández : :Referring: SRIRAM ERICKSON : + + Interpretation Summary Technically difficult study. Grossly normal both left and right ventricle size and function. The ejection fraction is estimated to be 60-65%. No valvular abnormality. Procedure: A two-dimensional transthoracic echocardiogram with color flow and Doppler was performed. The study quality was technically difficult. There is no prior echocardiogram noted for this patient. 1.5 cc of Definity contrast was used to improve image quality. The patient was in normal sinus rhythm during the exam. Left Ventricle: The left ventricle is grossly normal size. The ejection fraction is estimated to be 60-65%. There are no obvious focal wall motion abnormalities noted but poor endocardial definition reduces the sensitivity for the detection of such. Right Ventricle: The right ventricle grossly appears normal in size with probable normal systolic function. Atria: The left atrial size is normal. The right atrium grossly appears normal in size. Mitral Valve: The mitral valve is grossly normal. There is no mitral regurgitation noted. Aortic Valve: The aortic valve opens well. No aortic regurgitation is present. Tricuspid Valve: The tricuspid valve is not well visualized. Pulmonic Valve: The pulmonic valve is not well visualized. Great Vessels: The aortic root is normal size. The dimensions of the ascending aorta are normal. The aortic arch is normal in size. The inferior vena cava was not visualized. Pericardium/ Pleura There is no pericardial effusion. There is no pleural effusion. MMode/2D Measurements & Calculations Ao root diam: 3.4 cm LA dimension: 3.3 cm Aortic Jxn: 2.7 cm asc Aorta Diam: 3.2 cm Ao Arch Diam (Prox Trans): 3.0 cm Doppler Measurements & Calculations Ao V2 max: 136.5 cm/sec MV E max remberto: 55.5 cm/sec Ao V2 mean: 86.6 cm/sec MV A max remberto: 83.5 cm/sec Ao max P.5 mmHg MV E/A: 0.66 Ao mean P.6 mmHg Med Peak E' Remberto: 4.8 cm/sec Ao V2 VTI: 24.0 cm E/E' med: 11.5 Lat Peak E' Remberto: 5.6 cm/sec E/E' lat: 9.9 E/e' average: 10.7 MV dec time: 0.24 sec MV P1/2t: 71.0 msec MV P1/2t max remberto: 55.8 cm/sec MVA(P1/2t): 3.1 cm2 Electronically signed by: Eliane Sheldon on Reading Physician:02/17/2019 04:23 PM
== END ==
PROVIDERS: PCP Internal Medicine; Visit Provider Internal Medicine Hematology & Oncology
DX: C50.912 Malignant neoplasm of unspecified site of left female breast (principal)
CPT/HCPCS: 93306; Q9957

== ENCOUNTER → 2019-02-20 13:20 | Oncology outpatient (ONC) | payer MEDICARE, OTHER, SELFPAY ==
[2019-02-03 14:49] VITALS: BP 131/87; PULSE 92; RESP 18; TEMP 36.8; O2SAT 96
--- NOTE | 2019-02-03 14:51 | P.CONONC_ITS ---
History of Present Illness - Data of Consult Patient: new to practice Consult date: 02/03/19 Requesting Physician: Vel Garland MD Primary Care Provider: Vel Garland MD - Consult Narrative Reason for consult: Left Breast Cancer Narrative: Ophelia Rice is a 63 year old female. Patient admitted to taking oral estrogen replacement after hysterectomy in her 40s. She took the estrogen for about 10 years. She admitted that she has skipped annual mammogram for the past 4 years. On December 22, 2018, patient found a lump with a dent in her left breast. She went to see her primary care provider Maria Guadalupe Bolaños. A 2-3 cm mass lesion with a dimpling of the skin on the left lateral breast between 2 and 3:[address] Maria Guadalupe bolaños. Therefore patient underwent screening mammogram on 01/09/2019. The mammogram showed new 2.1 x 2.5 cm irregular high density mass with a spiculated margin in the left axillary tail. Ultrasound study showed 2 cm x 2 cm x 1.3 cm irregular mass in the left breast at 2:00 posterior depth. These findings are highly suspicious for malignancy. On 01/22/2019, patient underwent ultrasound-guided biopsy of the breast lesion as well as the axillary lesion. The left axillary mass was invasive ductal carcinoma, [place] grade 2/3, no DCIS, and no lymphovascular invasion. No lymph node tissue identified. The biopsy from left breast mass at 2:00 a.m. showed invasive ductal carcinoma, [place] grade 2/3, no DCIS, no lymphovascular invasion. Immunohistochemistry showed estrogen receptor was positive (95%, strong signal), NM positive (60%, strong), and HER2 negative (1+) She presents here today accompanied by her . She reported having left breast aches. She said she is also having some headache but not unusual. Jared larson has some problems with the eyes which she claimed hurting. She is also complaining back pain which is pre-existing problems but she claimed the pain seems to be getting worse. She admitted that there is no different or new pain. Patient denies any chest pain. Denies shortness of breath. Denies any abdominal pain. Denies any bleeding events. Patient said that in June of 2018, she all of a sudden lost ability to taste or smell. She said this happened after the use of Zithromax. In addition patient has some hand tingling on the left side with numbness. She said this is not new but worse. CC: Ronnie Carroll MD Patient reports pain?: Yes Home Medications and Allergies Home Medications Medication Instructions Recorded Confirmed Type amlodipine 5 mg tablet 5 mg PO DAILY 12/07/17 02/03/19 History atorvastatin 40 mg tablet 40 mg PO DAILY 12/07/17 02/03/19 History duloxetine 30 mg capsule,delayed 30 mg PO DAILY 12/07/17 02/03/19 History release duloxetine 60 mg capsule,delayed 60 mg PO DAILY 12/07/17 02/03/19 History release lisinopril 20 mg tablet 20 mg PO DAILY 12/07/17 02/03/19 History metformin 1,000 mg tablet 1,000 mg PO DAILY 12/07/17 02/03/19 History propranolol 20 mg tablet 20 mg PO BID 12/07/17 02/03/19 History triamterene 37.5 0.5 cap PO DAILY cap 07/01/18 02/03/19 History mg-hydrochlorothiazide 25 mg capsule aspirin 81 mg tablet,delayed 81 mg PO DAILY 10/06/18 02/03/19 History release cholecalciferol (vitamin D3) 1,000 1,000 unit PO DAILY 10/06/18 02/03/19 History unit capsule diphenhydramine 25 mg capsule 25 mg PO BEDTIME PRN 10/06/18 02/03/19 History magnesium 400 mg (as magnesium 400 mg PO DAILY cap 10/06/18 02/03/19 History oxide) capsule celecoxib 200 mg capsule 200 mg PO DAILY #30 cap 11/11/18 02/03/19 Rx cyclobenzaprine 10 mg PO TID PRN 02/03/19 02/03/19 History tramadol 50 mg TID 02/03/19 02/03/19 History Allergies Allergy/AdvReac Type Severity Reaction Status Date / Time Penicillins AdvReac Mild unknown Verified 10/06/18 11:57 Medical History - Medical, Surgical, Family History Medical History: Medical History (Updated 02/03/19 @ 15:50 by Ronnie Carroll MD) Hyperlipidemia Hypertension Pre-diabetes Psoriasis Surgical History: Surgical History (Updated 02/03/19 @ 15:50 by Ronnie Carroll MD) H/O bilateral oophorectomy H/O parathyroidectomy History of carpal tunnel surgery of right wrist Status post laparoscopic hysterectomy Status post total knee replacement Family History: Family History (Updated 02/03/19 @ 15:24 by Ronnie Carroll MD) Sister No problems noted. Mother Breast cancer - Social History Smoking Status: Former smoker Substance Use Type: does not use Alcohol Intake: current (ofternt, 2-3 ounces per day.) Review of Systems All systems PM: reviewed and no additional remarkable complaints except as stated Exam Vital signs: Last Vital Signs Temp 98.2 F 02/03/19 14:49 Pulse 92 H 02/03/19 14:49 Resp 18 02/03/19 14:49 BP 131/87 02/03/19 14:49 Pulse Ox 96 02/03/19 14:49 Narrative: ECOG 0 Gen: Well developed and obese woman, NAD, pleasant and cooperative. HEENT: NCAT, EOMI, PERRLA, anicteric sclera. Neck: Supple, No palpable thyromegaly or lymphadenopathy. Respiratory: CTAB, no wheezes audible. No JVD Cardiovascular: RRR, S1 and S2 normal, no M/G/R. Abdomen: Soft, NTND, BS normal, no palpable organomegaly Extremities: No LE pitting edema. Lymphatic: no palpable lymph nodes in the neck, axillae, or groins. Neurological: AOx3, CN II-XII grossly intact. No focal motor or sensory deficit. Psychiatric: Good judgment and insight; normal affect; normal thought process; cooperative, no depression, no anxiety. Breast exams: right breast: No nipple retraction, no palpable nodules or masses in the breast, no palpable lymph nodes in the right axilla; left breast: no nipple retraction. There is a 3 x 3 cm hard irregular mass at about 1:00 location. I did not appreciate any left axillary lymph nodes on my physical examination. All physical examinations were chaperoned. Results - Imaging Additional studies: Procedures Closed [endoscopic] biopsy of large intestine (07/07/14) Assessment and Plan (1) Breast cancer, left breast Overview: Self palpated left lung mass in late November 2018. Bx showed n 01/22/2019, patient underwent ultrasound-guided biopsy of the breast lesion as well as the axillary lesion. The left axillary mass was invasive ductal carcinoma, [place] grade 2/3, no DCIS, and no lymphovascular invasion. No lymph node tissue identified. The biopsy from left breast mass at 2:00 a.m. showed invasive ductal carcinoma, [place] grade 2/3, no DCIS, no lymphovascular invasion. Immunohistochemistry showed estrogen receptor was positive (95%, strong signal), NM positive (60%, strong), and HER2 negative (1+) Interim Events: I explained to the patient that the first step is to obtain more information to evaluate the extent or stages of her underlying newly diagnosed left breast cancer. For more accurate delineation of the primary tumor, I would obtain an MRI of the breast to further evaluate. Given that the likelihood of local lymph node replacement by malignant cells, patient has a high risk of distant metastasis. I will proceed with CT scan of the chest abdomen and pelvis to further evaluate for more accurate staging. In addition since June of 2018, patient has a sudden change of smell and taste, I will also obtain an MRI of the brain to evaluate for possible intracranial metastasis or pathological changes. Patient voiced understanding. Explained to the patient that for breast cancer especially hormone receptor positive, HER2 negative breast cancer, we usually recommend surgical resection upfront followed by possible so chemotherapy, radiation therapy and 5 years at least of endocrine therapy. Patient has already scheduled to see Dr. Claudio and bending him for surgical evaluation. Given the size of her tumor and the involvement most likely lymph nodes, I would recommend that adjuvant chemotherapy is necessary. I talked with the patient that for chemotherapy weight usually would like to have a port placement. I am is wondering if the port can be placed at the time of the breast surgery. Plan: 1. CBC, CMP 2. MRI breast 3. CT CAP w/contrast 4. MR brain 5. Echocardiogram 6. F/u with Dr. Lay as scheduled 7. Recommend port placement 8. RTC in 2 weeks for follow up visit
--- NOTE | 2019-02-04 08:51 | PC.NURSE ---
VALIUM: patient informed per telephone that she can pick out hand prescription for valium.
[2019-02-20 13:16] VITALS: BP 134/90; PULSE 87; RESP 18; TEMP 36.2; O2SAT 98
--- NOTE | 2019-02-20 13:22 | P.PNONC_ITS ---
PN -Subjective Interval history: ID and CC: 63 year old with left breast IDC here for scheduled follow up visit. Oncology History: Ophelia Rice is a 63 year old female. Patient admitted to taking oral estrogen replacement after hysterectomy in her 40s. She took the estrogen for about 10 years. She admitted that she has skipped annual mammogram for the past 4 years. On December 22, 2018, patient found a lump with a dent in her left breast. Screening mammogram on 01/09/2019 showed new 2.1 x 2.5 cm irregular high density mass with a spiculated margin in the left axillary tail. Ultrasound study showed 2 cm x 2 cm x 1.3 cm irregular mass in the left breast at 2:00 posterior depth. These findings are highly suspicious for malignancy. On 01/22/2019, patient underwent ultrasound-guided biopsy of the breast lesion as well as the axilary lesion. The left axillary mass was invasive ductal carcinoma, [place] grade 2/3, no DCIS, and no lymphovascular invasion. No lymph node tissue identified. The biopsy from left breast mass at 2:00 a.m. showed invasive ductal carcinoma, [place] grade 2/3, no DCIS, no lymphovascular inv asion. Immunohistochemistry showed estrogen receptor was positive (95%, strong signal), NJ positive (60%, strong), and HER2 negative (1+) Interim Events: During the interim, she underwent breast MRI on 02/12/2019 that showed a 3.4 cm irregular mass at 2:00 position, a 10 mm intramammary lymph node between the mass and axillary adenopathy. CT CAP on 02/05/2019 showed no distant metastasis. Brain MRI showed no intracranial metastasis. Patient went to [facility] for second opinion Sunday of this week. Patient was evaluated by Dr. Herson Mcgovern, Dr. Tiffany Mccartney MD, and Dr. Mary Mistry. According to patient and her , [facility] recommended surgery first, followed by chemotherapy followed by radiation therapy and followed by endocrine therapy. One of the questions is about whether lumpectomy is feasible versus mastectomy. Clinically, she does not have any new signs or symptoms. - Patient Self-Reported Symptoms SR Constitution: Night Sweats SR Skin issues: Skin rash or itching - Additional ROS All systems PM: reviewed and no additional remarkable complaints except as stated Home Medications and Allergies Home Medications Medication Instructions Recorded Confirmed Type amlodipine 5 mg tablet 5 mg PO DAILY 12/07/17 02/03/19 History atorvastatin 40 mg tablet 40 mg PO DAILY 12/07/17 02/03/19 History duloxetine 30 mg capsule,delayed 30 mg PO DAILY 12/07/17 02/03/19 History release duloxetine 60 mg capsule,delayed 60 mg PO DAILY 12/07/17 02/03/19 History release lisinopril 20 mg tablet 20 mg PO DAILY 12/07/17 02/03/19 History metformin 1,000 mg tablet 1,000 mg PO DAILY 12/07/17 02/03/19 History propranolol 20 mg tablet 20 mg PO BID 12/07/17 02/03/19 History triamterene 37.5 0.5 cap PO DAILY cap 07/01/18 02/03/19 History mg-hydrochlorothiazide 25 mg capsule aspirin 81 mg tablet,delayed 81 mg PO DAILY 10/06/18 02/03/19 History release cholecalciferol (vitamin D3) 1,000 1,000 unit PO DAILY 10/06/18 02/03/19 History unit capsule diphenhydramine HCl 25 mg capsule 25 mg PO BEDTIME PRN 10/06/18 02/03/19 History magnesium oxide 400 mg (as 400 mg PO DAILY cap 10/06/18 02/03/19 History magnesium oxide) capsule celecoxib 200 mg capsule 200 mg PO DAILY #30 cap 11/11/18 02/03/19 Rx cyclobenzaprine 10 mg PO TID PRN 02/03/19 02/03/19 History diazepam [Valium] 5 mg PO BEDTIME PRN #2 tab 02/03/19 Rx tramadol 50 mg TID 02/03/19 02/03/19 History Allergies Allergy/AdvReac Type Severity Reaction Status Date / Time Penicillins AdvReac Mild unknown Verified 10/06/18 11:57 Exam Vital signs: Vital Signs Temp Pulse Resp BP Pulse Ox 02/20/19 13:16 97.2 F L 87 18 134/90 98 Intake and Output 02/19/19 02/20/19 02/20/19 23:59 07:59 15:59 Other: Weight 112.4 kg Patient Weight 02/20/19 23:59 Weight 112.4 kg Narrative: Deferred. Results - Labs See HPI. CT/MRI reviewed. - Imaging Additional studies: Procedures Closed [endoscopic] biopsy of large intestine (07/07/14) Assessment and Plan (1) Breast cancer, left breast Overview: Self palpated left lung mass in late November 2018. Bx showed n 01/22/2019, patient underwent ultrasound-guided biopsy of the breast lesion as well as the axillary lesion. The left axillary mass was invasive ductal carcinoma, [place] grade 2/3, no DCIS, and no lymphovascular invasion. No lymph node tissue identified. The biopsy from left breast mass at 2:00 a.m. showed invasive ductal carcinoma, [place] grade 2/3, no DCIS, no lymphovascular invasion. Immunohistochemistry showed estrogen receptor was positive (95%, strong signal), NJ positive (60%, strong), and HER2 negative (1+) Assessment: I reviewed MRI breast, MRI brain and CT CAP results with her and her and her friend. She has had second opinion at [facility]. I told her that based on [facility]'s opinion, she will first get the surgery done and then come back to our cancer center for adjuvant chemotherapy. I told her that after the surgery, it less than 4 axillary lymph nodes are involved by metastasis, OncoType Dx score may be done to determined the need for chemotherapy. After chemotherapy, she will need radiation therapy. And then 5 yrs of endocrine therapy. Plan: 1. [facility] for surgery 2. Tentatively schedule to follow up with me on 03/20/2019 for discussion of chemotherapy.
== END ==
PROVIDERS: PCP Internal Medicine; Visit Provider Internal Medicine Hematology & Oncology
DX: C50.412 Malignant neoplasm of upper-outer quadrant of left female breast (principal); C50.612 Malignant neoplasm of axillary tail of left female breast; Z17.0 Estrogen receptor positive status [ER+]
CPT/HCPCS: 36415; 80053; 85025; 99205; 99214; 99215

== ENCOUNTER → 2019-05-15 11:43 | Outpatient (CLI) | payer MEDICARE, OTHER, SELFPAY ==
[2019-05-15 12:07] LABS: Mean Corpuscular Volume 92.1 fL (80-100); Platelet Count 438 X10^3/uL (150-400); Red Cell Distribution Width 13.9 % (11.6-14.8)
[2019-05-15 12:11] LABS: Hematocrit 40.1 % (36-46); Hemoglobin 13.5 g/dL (12.0-16.0); Mean Corpuscular HGB Conc 33.7 % (30-36); Mean Corpuscular Hemoglobin 31.1 PG (26-34); Red Blood Cell Count 4.35 X10^6/uL (4.0-5.2)
[2019-05-15 12:13] LABS: Add Manual Diff / Slide Review YES
[2019-05-15 12:45] LABS: Neutrophils Absolute Manual 1360 /uL (3000-5900); Total Cells Counted 50
[2019-05-15 12:46] LABS: Anisocytosis 1+
== END ==
PROVIDERS: PCP Internal Medicine; Visit Provider Internal Medicine Medical Oncology
DX: C50.919 Malignant neoplasm of unspecified site of unspecified female breast (principal)
CPT/HCPCS: 36415; 85025

== ENCOUNTER → 2019-09-09 17:02 | Outpatient (CLI) | payer MEDICARE, OTHER, SELFPAY ==
[2019-09-09 17:43] LABS: Appearance Urine UA CLEAR; Bilirubin Urine UA NEGATIVE (NEGATIVE); Color Urine UA YELLOW; Glucose Urine UA NEGATIVE (Negative); Ketones Urine UA NEGATIVE (NEGATIVE); Leukocyte Esterase Urine UA NEGATIVE (NEGATIVE); Nitrite Urine UA NEGATIVE (Negative); Occult Blood Urine UA 2+ (Negative); Protein Urine UA 1+ (Negative); Specific Gravity Urine UA <=1.005 (1.000-1.035); Urobilinogen Urine UA 0.2 E.U./dL (0.2)
[2019-09-09 17:46] LABS: Add Manual Diff / Slide Review NO; Basophils Absolute Auto 100 /uL (0-100); Basophils Percent Auto 0.4 % (0-2); Eosinophils Absolute Auto 0 /uL (0-450); Hematocrit 37.6 % (36-46); Hemoglobin 12.3 g/dL (12.0-16.0); Lymphocytes Absolute Auto 1100 /uL (1100-4500); Lymphocytes Percent Auto 5.7 % (25-40); Mean Corpuscular HGB Conc 32.8 % (30-36); Mean Corpuscular Hemoglobin 31.6 PG (26-34); Mean Corpuscular Volume 96.3 fL (80-100); Monocytes Absolute Auto 1400 /uL (0-900); Monocytes Percent Auto 7.7 % (3-14); Neutrophils Absolute Auto 16000 /uL (1500-7000); Neutrophils Percent Auto 86.2 % (50-75); Platelet Count 227 X10^3/uL (150-400); Red Cell Distribution Width 16.2 % (11.6-14.8); White Blood Cell Count 18.6 X10^3/uL (4.5-11.0)
[2019-09-09 18:04] LABS: pH Urine UA 5.5 (4.5-8.0)
[2019-09-09 18:05] LABS: Alanine Aminotransferase 25 IU/L (<35); Albumin 4.5 g/dL (3.5-5.0); Albumin Globulin Ratio 1.5 (1.0-2.8); Alkaline Phosphatase 84 U/L (38-126); Aspartate Aminotransferase 22 IU/L (14-36); BUN Creatinine Ratio 19.4 (6-22); Bilirubin Total 0.8 mg/dL (0.2-1.3); Blood Urea Nitrogen 13 mg/dL (7-17); Calcium 9.7 mg/dL (8.4-10.2); Carbon Dioxide 30 mmol/L (22-32); Chloride 93 mmol/L (98-107); Creatine Kinase 36 U/L (30-135); Estimated Glomerular Filt Rate > 60.0 mL/min (>60); Globulin 3.1 g/dL (1.7-4.1); Glucose 168 mg/dL (80-110); HEMOLYSIS < 15 (0-50); Potassium 3.7 mmol/L (3.4-5.1); RBC Urine 1-5/HPF (0-5/HPF); Sodium 132 mmol/L (137-145); Total Protein 7.6 g/dL (6.3-8.2)
[2019-09-09 18:06] LABS: Bacteria Urine Few (2-10); Culture Indicated Urine Cult Not Indicated; Squamous Epithelial Cell Urine 0-1 /HPF (0-5/HPF); WBC Urine 1-5/HPF (0-5/HPF)
[2019-09-09 18:42] LABS: Erythrocyte Sedimentation Rate 61 MM/HR (0-20)
== END ==
PROVIDERS: PCP Internal Medicine; Referring Provider Internal Medicine; Visit Provider Internal Medicine
DX: M79.10 Myalgia, unspecified site (principal); R50.9 Fever, unspecified
CPT/HCPCS: 36415; 80053; 81001; 82550; 85025; 85651

== ENCOUNTER → 2019-09-11 09:35 | Outpatient (CLI) | payer MEDICARE, OTHER, SELFPAY ==
--- NOTE | 2019-09-11 | DI.RAD.S_ITS ---
PROCEDURE: XR CHEST 2V INDICATIONS: Myalgia, fever TECHNIQUE: 2 views of the chest were acquired. COMPARISON: [facility], CT, CT CHEST ABD PEL W CON, 02/05/2019, 15:06. FINDINGS: Surgical changes and devices: Left mastectomy changes and left axillary/chest wall clips are seen. Lungs and pleura: Lungs are clear. No pleural effusions or pneumothorax. Mediastinum: Mediastinal contours are normal. Heart size is normal. Bones and chest wall: No suspicious bony abnormalities. Dextroconvex thoracolumbar scoliosis is seen. Age-appropriate bony degenerative changes are seen. Soft tissues appear unremarkable. IMPRESSION: No focal infiltrates are seen. Left mastectomy. Dictated by: Zeus Gregory M.D. on 09/11/2019 at 8:56 Approved by: Zeus Gregory M.D. on 09/11/2019 at 8:58
== END ==
PROVIDERS: PCP Internal Medicine; Referring Provider Internal Medicine; Visit Provider Internal Medicine
DX: M79.10 Myalgia, unspecified site (principal); R50.9 Fever, unspecified; M41.85 Other forms of scoliosis, thoracolumbar region; Z90.12 Acquired absence of left breast and nipple
CPT/HCPCS: 71046

== ENCOUNTER → 2019-12-18 10:46 | Outpatient (CLI) | payer MEDICARE, OTHER, SELFPAY ==
--- NOTE | 2019-12-18 10:49 | DI.RAD.S_ITS ---
PROCEDURE: XR LUMBAR SPINE MIN 4V INDICATIONS: LBp and Right Hip pain TECHNIQUE: 5 views of the lumbar spine were acquired. COMPARISON: [facility], , L-SPINE 2-3 VIEWS, 07/23/2017, 10:09. FINDINGS: Bones: 5 nonrib-bearing vertebrae are present. There is moderately dextroscoliotic bony alignment. No vertebral body compression fractures. No suspicious bony lesions. Degenerative disc disease and facet osteoarthritis along the lumbosacral spine is moderately severe and most pronounced at L2-L3 and L5-S1. Facet osteoarthritis contributes to likelihood of spinal and foraminal stenosis at the mid and lower thirds of the lumbosacral spine. Soft tissues: Overlying bowel gas pattern is normal. No suspicious soft tissue calcifications. Oblique images: No pars defects. IMPRESSION: No compression fractures seen. Moderately severe degenerative disc disease and facet osteoarthritis, to the degree that significant spinal and foraminal stenosis over the middle and lower thirds of the lumbosacral spine appears present. Dictated by: Tomas Downs M.D. on 12/18/2019 at 15:15 Approved by: Tomas Downs M.D. on 12/18/2019 at 15:16
== END ==
PROVIDERS: PCP Internal Medicine; Referring Provider Physical Medicine & Rehabilitation; Visit Provider Physical Medicine & Rehabilitation
DX: M47.816 Spondylosis without myelopathy or radiculopathy, lumbar region (principal); M47.817 Spondylosis without myelopathy or radiculopathy, lumbosacral region; M41.20 Other idiopathic scoliosis, site unspecified; M25.551 Pain in right hip; M51.36 Other intervertebral disc degeneration, lumbar region; M51.37 Other intervertebral disc degeneration, lumbosacral region
CPT/HCPCS: 72110

== ENCOUNTER → 2019-12-31 16:07 | Outpatient (CLI) | payer MEDICARE, OTHER, SELFPAY ==
--- NOTE | 2019-12-31 16:10 | DI.MRI.S_ITS ---
PROCEDURE: MR LUMBAR SPINE WO CON INDICATIONS: Right L5-S1 transforaminal JOSE ROBERTO TECHNIQUE: Noncontrast sagittal T1 spin echo and T2 fast echo, coronal T2, sagittal STIR, axial T1 and T2 fast spin echo through the lumbar spine. COMPARISON: [facility], MR, MR LUMBAR SPINE WITHOUT CONTRAST, 08/10/2017, 9:29. [facility], CR, XR LUMBAR SPINE MIN 4V, 12/18/2019, 10:09. FINDINGS: Image quality: Excellent. Alignment and Curvature: 5 lumbar type vertebral by suppressed by plain film. There is mild, grade 1 retrolisthesis of L2 on L3 and L3 on L4. There is mild grade 1 anterolisthesis of L5 on S1. There is moderate rightward curvature of the upper lumbar spine. Bone Marrow: Marrow is of normal overall signal. No acute vertebral body compression fractures. Mild reactive signal within the endplates adjacent to the the L1-L2, L3-L4, L4-L5, and L5-S1 intervertebral discs. Moderate reactive signal within the endplates adjacent to the L2-L3 intervertebral disc. Spinal Cord: Conus medullaris terminates at the L1-L2 disc space level. Visualized cord demonstrates normal signal and size. Paraspinous Soft Tissues: No paravertebral masses. L1-L2: Moderate disc height loss and desiccation. Mild diffuse disc bulge. Mild facet and ligament flavum hypertrophy. Mild epidural lipomatosis. Mild canal stenosis. Mild bilateral foraminal stenosis. L2-L3: Severe disc height loss and desiccation. Mild diffuse disc bulge with superimposed left far lateral protrusion/osteophyte. Mild facet and ligament flavum hypertrophy. Mild epidural lipomatosis. Mild canal stenosis. Mild leftward and right foraminal stenosis. No change. L3-L4: Moderate disc height loss and desiccation. Moderate diffuse disc bulge. Mild facet and ligamentum flavum hypertrophy. Moderate epidural lipomatosis. Severe canal stenosis. Mild bilateral foraminal stenosis. No change. L4-L5: Moderate disc desiccation. Mild disc height loss. Moderate diffuse disc bulge. Moderate facet and ligamentum hypertrophy. Mild epidural lipomatosis. Moderate canal stenosis. Moderate bilateral foraminal stenosis. No change. L5-S1: Moderate disc height loss and desiccation. Mild diffuse disc bulge with superimposed right far lateral protrusion. Moderate facet hypertrophy bilaterally. Mild canal stenosis. Mild left and severe right foraminal stenosis associated with L5 nerve root compression. IMPRESSION: 1. Multilevel degenerative disc and facet disease, as well as ligamentum flavum hypertrophy and epidural lipomatosis. 2. Multilevel canal stenoses, worst at L3-L4, where there is severe canal stenosis. 3. Multilevel foraminal stenoses, worst on the right at L5-S1 where there is associated L5 nerve root compression. 4. Recommend correlation with clinical symptoms to ascertain relevance of this finding. Dictated by: Kush Sue M.D. on 01/01/2020 at 8:58 Approved by: Kush Sue M.D. on 01/01/2020 at 10:07
== END ==
PROVIDERS: PCP Internal Medicine; Referring Provider Physical Medicine & Rehabilitation; Visit Provider Physical Medicine & Rehabilitation
DX: M51.17 Intervertebral disc disorders with radiculopathy, lumbosacral region (principal); M48.061 Spinal stenosis, lumbar region without neurogenic claudication; M48.07 Spinal stenosis, lumbosacral region; M41.20 Other idiopathic scoliosis, site unspecified; E88.2 Lipomatosis, not elsewhere classified
CPT/HCPCS: 72148

== ENCOUNTER → 2020-02-07 08:35 | Outpatient (CLI) | payer MEDICARE, OTHER, SELFPAY ==
[2020-02-08 20:58] LABS: COVID19 Sendout Not Detected (Not Detect)
== END ==
PROVIDERS: PCP Internal Medicine; Visit Provider Physician Assistant
DX: Z11.59 Encounter for screening for other viral diseases (principal)
CPT/HCPCS: 87635

== ENCOUNTER 2020-02-10 14:11 | Outpatient (CLI) | payer MEDICARE, OTHER, SELFPAY ==
[2020-02-10] VITALS (9 sets, daily range): BP systolic 110–130; BP diastolic 72–85; PULSE 80–92; RESP 13–18; TEMP 36.7; O2SAT 95–100
--- NOTE | 2020-02-10 14:12 | DI.RAD.S_ITS ---
PROCEDURE: PAIN L/S TRANSFORAMINAL INJECT INDICATIONS: SPONDYLOSIS COMPARISON: [facility], XA, PAIN L/S TRANSFORAMINAL INJECT, 01/01/2018, 9:48. [facility], MR, MR LUMBAR SPINE WO CON, 12/31/2019, 16:19. Fluoroscopic spot filming was performed to verify placement of a spinal needle at the L5-S1 level on the right, as labeled on the films. Appropriate location of the needle tip was confirmed by injection of iodinated contrast. IMPRESSION: No significant intraprocedural abnormality. Dictated by: Zeus Gregory M.D. on 02/10/2020 at 16:02 Approved by: Zeus Gregory M.D. on 02/10/2020 at 16:02
[2020-02-10] MEDS: fentaNYL 100 MCG/2 ML INJ 50 MCG IV (15:06)
[2020-02-10] MEDS: MIDAZOLAM 5 MG/5 ML VIAL IV (15:08)
[2020-02-10] MEDS: BUPIVACAINE 0.25% (PF) VIAL 2 ML INJ (15:14)
[2020-02-10] MEDS: BETAMETHASONE 30 MG/5 ML MDV 6 MG INJ (15:14)
[2020-02-10] MEDS: IOPAMIDOL 15 ML VIAL 3 ML INJ (15:14)
[2020-02-10] MEDS: DEXAMETHASONE 10 MG/ML VIAL 20 MG INJ (15:15)
--- NOTE | 2020-02-10 15:28 | PM.PROC.IR.1 ---
Date/Time/Diagnoses Date of procedure: 02/10/20 Time of procedure: 15:28 Pre-procedure diagnosis: 1. FORAMINAL STENOSIS WITH LE SYMPTOMS Post-procedure diagnosis: same Procedure Notes Procedure: 1. FLUOROSCOPICALLY GUIDED CONTRAST CONTROLLED TRANSFORAMINAL EPIDURAL STEROID INJECTION - RIGHT L5/S1 TFESI Indications: Ophelia is referred by Dr. Garland for treatment of Foraminal Stenosis with right LE Symptoms Physician: Luc Ibanez Total Fluoroscopy time (seconds): 19 Total sedation minutes: 17 Complications: none Procedure in detail & Post-procedure care: FINDINGS Foraminal Nerve Root Compression secondary to disc disease and facet hypertrophy DESCRIPTION OF PROCEDURE Following review of allergy and review of potential side effects and complications, including, but not necessarily limited to, infection, allergic reaction, local tissue breakdown, stroke, temporary or permanent nerve injury, paralysis, and possible , the patient indicated that the patient understood and agreed to proceed. An informed consent document was signed by the patient, witnessed by a nurse, and placed in the patient's chart. Additionally, other treatment options including medications, modalities, and physical therapy were reviewed with the patient. After review of previous anaesthesic history and IV conscious sedation the patient was deemed safe to proceed with today?s procedure with IV conscious sedation as ASA class II designation. Safety time-out was performed to confirm patient ID, procedure to be performed and site of procedure. IV sedation was accomplished with a combination of 3mg of Versed and 50mcg of Fentanyl was administered by the RN after DO order, titrated to patient comfort during the course of the procedure while the patient remained responsive to all verbal commands In the prone position following sterile prep and drape of the lumbar region, the right L5/S1 posterior neuroforamen was identified fluoroscopically. The skin was anesthetized via a 25-gauge 1.5-inch needle with 1% lidocaine solution. At this point, a 22-gauge 5-inch spinal needle was atraumatically introduced and advanced under fluoroscopic guidance through the posterior right L5/S1 neuroforamen to approximately the anterior aspect of the canal. Depth was confirmed on lateral view. Following negative aspiration, injection of approximately 1.5 cc of Isovue 200 under live fluoroscopy in the AP view confirmed excellent flow along the nerve root, into the epidural space without vascular or intrathecal uptake observed Radiological data, including multiple fluoroscopic views of the lumbosacral spine, reveal a spinal needle at the right L5/S1 posterior neuroforamen. Subsequent views show flow of contrast material flowing superiorly and inferiorly along the nerve root confirming epidural flow. Subsequently, a test dose of 1.5 cc of 1% lidocaine solution was administered and patient was observed for two minutes for signs or symptoms of complications, including abdominal pain, shortness of breath, bilateral upper or lower extremity weakness, nausea and vomiting, prior to steroid injection. At this point, a total of 3cc or 20mg of dexamethasone and 6mg betamethasone was injected without incident. The procedure tolerated the procedure well without signs or symptoms of complications prior to transfer to the recovery area continued monitoring without incident. The patient was then transferred to the recovery area where they were observed for an appropriate time after the injection. The patient reported a VAS score of 7 prior to the procedure and a post-procedure VAS of 0. POST OP INSTRUCTIONS The patient was provided a Pain Log to continue to record their response to the target-specific procedure prior to follow-up visit with their referring physician. Additionally, specific post-injection care instructions and a contact number to our office were provided if concerns arise regarding possible complications associated with the procedure are suspected.
--- NOTE | 2020-02-10 15:56 | PC.NURSE ---
Pt arrived from procedure room at 1528. Denies pain. Tolerating sips of water and cookies. IV removed. waiting at ER Entrance. Ready for DC- no questions re: follow up or instructions.
--- NOTE | 2020-02-10 16:23 | PC.NURSE ---
Patient was stable and transferred to [facility]. Fentanyl and versed administered by this RN and all other medications administered by Dr Ibanez.
== END 2020-02-10 15:44 | disposition home or self-care (01) ==
LOC: RAD 14:12
PROVIDERS: PCP Internal Medicine; Referring Provider Internal Medicine; Visit Provider Physical Medicine & Rehabilitation
DX: M48.07 Spinal stenosis, lumbosacral region (principal); M51.17 Intervertebral disc disorders with radiculopathy, lumbosacral region
CPT/HCPCS: 64483; 99152; J0702; J1100; J2250; J3010

== ENCOUNTER → 2020-04-19 13:21 | Outpatient (CLI) | payer MEDICARE, OTHER, SELFPAY ==
[2020-04-20 22:26] LABS: COVID19 Sendout Not Detected (Not Detect)
== END ==
PROVIDERS: PCP Internal Medicine; Visit Provider Physician Assistant
DX: Z11.59 Encounter for screening for other viral diseases (principal)
CPT/HCPCS: 87635

== ENCOUNTER 2020-04-22 12:12 | Outpatient (CLI) | payer MEDICARE, OTHER, SELFPAY ==
[2020-04-22] VITALS (10 sets, daily range): BP systolic 96–137; BP diastolic 58–85; PULSE 79–88; RESP 10–19; TEMP 36.3; O2SAT 90–98
--- NOTE | 2020-04-22 12:16 | DI.RAD.S_ITS ---
PROCEDURE: PAIN L INTERLAMINAR/CAUDAL INJ INDICATIONS: SPONDYLOSIS COMPARISON: [facility], MR, MR LUMBAR SPINE WO CON, 12/31/2019, 16:19. [facility], CR, XR LUMBAR SPINE MIN 4V, 12/18/2019, 10:09. FINDINGS: Fluoroscopic spot filming was performed to verify placement of spinal needles at the L5-S1 level(s), as labeled on the films. Appropriate location(s) of the needle tip(s) was confirmed by injection of iodinated contrast. IMPRESSION: Fluoroscopy for pain management. Dictated by: Mary Vick M.D. on 04/22/2020 at 15:24 Approved by: Mary Vick M.D. on 04/22/2020 at 15:25
[2020-04-22] MEDS: MIDAZOLAM 5 MG/5 ML VIAL IV (14:22)
[2020-04-22] MEDS: IOPAMIDOL 15 ML VIAL 3 ML INJ (14:25)
[2020-04-22] MEDS: BUPIVACAINE 0.25% (PF) VIAL 2 ML INJ (14:25)
[2020-04-22] MEDS: DEXAMETHASONE 10 MG/ML VIAL 20 MG INJ (14:26)
[2020-04-22] MEDS: BETAMETHASONE 30 MG/5 ML MDV 6 MG INJ (14:26)
[2020-04-22] MEDS: fentaNYL 100 MCG/2 ML INJ 50 MCG IV (14:28)
--- NOTE | 2020-04-22 14:36 | P.PCN_ITS ---
Date/Time/Diagnoses Date of procedure: 04/22/20 Time of procedure: 14:36 Pre-procedure diagnosis: 1. FORAMINAL STENOSIS WITH LE SYMPTOMS Post-procedure diagnosis: same Procedure Notes Procedure: 1. FLUOROSCOPICALLY GUIDED CONTRAST CONTROLLED TRANSFORAMINAL EPIDURAL STEROID INJECTION - RIGHT L5/S1 TFESI Indications: Ophelia is referred by Dr. Garland for treatment of Foraminal Stenosis with right LE Symptoms Physician: Luc Ibanez Total Fluoroscopy time (seconds): 3 Total sedation minutes: 6 Complications: none Procedure in detail & Post-procedure care: FINDINGS Foraminal Nerve Root Compression secondary to disc disease and facet hypertrophy DESCRIPTION OF PROCEDURE Following review of allergy and review of potential side effects and complications, including, but not necessarily limited to, infection, allergic reaction, local tissue breakdown, stroke, temporary or permanent nerve injury, paralysis, and possible , the patient indicated that the patient understood and agreed to proceed. An informed consent document was signed by the patient, witnessed by a nurse, and placed in the patient's chart. Additionally, other treatment options including medications, modalities, and physical therapy were reviewed with the patient. After review of previous anaesthesic history and IV conscious sedation the patient was deemed safe to proceed with today?s procedure with IV conscious sedation as ASA class II designation. Safety time-out was performed to confirm patient ID, procedure to be performed and site of procedure. IV sedation was accomplished with a combination of 2mg of Versed and 50mcg of Fentanyl was administered by the RN after DO order, titrated to patient comfort during the course of the procedure while the patient remained responsive to all verbal c ommands In the prone position following sterile prep and drape of the lumbar region, the right L5/S1 posterior neuroforamen was identified fluoroscopically. The skin was anesthetized via a 25-gauge 1.5-inch needle with 1% lidocaine solution. At this point, a 25-gauge 3.5-inch spinal needle was atraumatically introduced and advanced under fluoroscopic guidance through the posterior right L5/S1 neuroforamen to approximately the anterior aspect of the canal. Depth was confirmed on lateral view. Following negative aspiration, injection of approximately 1.5cc of Isovue 200 under live fluoroscopy in the AP view confirmed excellent flow along the nerve root, into the epidural space without vascular or intrathecal uptake observed Radiological data, including multiple fluoroscopic views of the lumbosacral spine, reveal a spinal needle at the right L5/S1 posterior neuroforamen. Subsequent views show flow of contrast material flowing superiorly and inferiorly along the nerve root confirming epidural flow. Subsequently, a test dose of 1.5cc of 1% lidocaine solution was administered and patient was observed for two minutes for signs or symptoms of complications, including abdominal pain, shortness of breath, bilateral upper or lower extremity weakness, nausea and vomiting, prior to steroid injection. At this point, a total of 3cc or 20mg of dexamethasone and 6mg betamethasone was injected without incident. The procedure tolerated the procedure well without signs or symptoms of complications prior to transfer to the recovery area continued monitoring without incident. The patient was then transferred to the recovery area where they were observed for an appropriate time after the injection. The patient reported a VAS score of 7 prior to the procedure and a post-procedure VAS of 0. POST OP INSTRUCTIONS The patient was provided a Pain Log to continue to record their response to the target-specific procedure prior to follow-up visit with their referring physician. Additionally, specific post-injection care instructions and a contact number to our office were provided if concerns arise regarding possible complications associated with the procedure are suspected.
== END 2020-04-22 15:08 | disposition home or self-care (01) ==
LOC: RAD 12:15
PROVIDERS: PCP Internal Medicine; Referring Provider Physical Medicine & Rehabilitation; Visit Provider Physical Medicine & Rehabilitation
DX: M48.07 Spinal stenosis, lumbosacral region (principal); M51.17 Intervertebral disc disorders with radiculopathy, lumbosacral region
CPT/HCPCS: 62323; J0702; J1100; J2250; J3010

== ENCOUNTER → 2020-07-30 08:56 | Outpatient (CLI) | payer MEDICARE, OTHER, SELFPAY ==
--- NOTE | 2020-07-30 08:58 | DI.RAD.S_ITS ---
PROCEDURE: XR SHOULDER LT MIN 2V INDICATIONS: Shoulder impingement TECHNIQUE: 3 views of the shoulder were acquired. COMPARISON: None. FINDINGS: Bones: No fractures or dislocations. No suspicious bony lesions. Visualized ribs appear intact. Soft tissues: No suspicious soft tissue calcifications. IMPRESSION: Degenerative AC joint osteoarthritis is [id number], no trauma found. Note is made of axillary surgical clips. Dictated by: Tomas Downs M.D. on 07/30/2020 at 12:53 Approved by: Tomas Downs M.D. on 07/30/2020 at 12:54
--- NOTE | 2020-07-30 08:58 | DI.RAD.S_ITS ---
PROCEDURE: XR CERVICAL SPINE 4V OR 5V INDICATIONS: update imaging TECHNIQUE: 5 views of the cervical spine acquired. COMPARISON: None. FINDINGS: Bones: No fractures or dislocations to the T1 level. Oblique images demonstrate no bony foraminal stenoses. Moderately severe C5-6 and C6-7 degenerative disc disease. Foraminal stenosis appears present at C3-4, C5-6, and C6-7 bilaterally. Soft tissues: No prevertebral soft tissue swelling. IMPRESSION: No trauma found, moderately severe degenerative changes that include both disc disease and foraminal stenosis. Spinal and foraminal stenosis likely is present to the degree that follow-up by MR scanning may become necessary. Dictated by: Tomas Downs M.D. on 07/30/2020 at 12:33 Approved by: Tomas Downs M.D. on 07/30/2020 at 12:34
== END ==
PROVIDERS: PCP Internal Medicine; Referring Provider Physical Medicine & Rehabilitation; Visit Provider Physical Medicine & Rehabilitation
DX: M75.42 Impingement syndrome of left shoulder (principal); M19.012 Primary osteoarthritis, left shoulder; M50.322 Other cervical disc degeneration at C5-C6 level; M48.02 Spinal stenosis, cervical region
CPT/HCPCS: 72050; 73030

== ENCOUNTER → 2020-08-03 10:02 | Outpatient (CLI) | payer MEDICARE, OTHER, SELFPAY ==
[2020-08-03 12:22] LABS: COVID19 -Nasal RAPID Negative (Negative)
== END ==
PROVIDERS: PCP Internal Medicine; Visit Provider Physical Medicine & Rehabilitation
DX: Z01.812 Encounter for preprocedural laboratory examination (principal); Z20.822 Contact with and (suspected) exposure to COVID-19
CPT/HCPCS: 87635; C9803

== ENCOUNTER 2020-08-05 12:11 | Outpatient (CLI) | payer MEDICARE, OTHER, SELFPAY ==
[2020-08-05] VITALS (9 sets, daily range): BP systolic 123–177; BP diastolic 74–89; PULSE 71–82; RESP 13–22; TEMP 36.4; O2SAT 93–100
--- NOTE | 2020-08-05 12:14 | DI.RAD.S_ITS ---
PROCEDURE: PAIN L/S TRANSFORAMINAL INJECT INDICATIONS: SPONDYLOSIS COMPARISON: [facility], , PAIN L/S TRANSFORAMINAL INJECT, 02/10/2020, 14:07. FINDINGS: Fluoroscopic spot filming was performed to verify placement of a spinal needle at the L4-L5 level, as labeled on the films. Appropriate location of the needle tip was confirmed by injection of iodinated contrast. IMPRESSION: Intraprocedural examination within normal limits. Dictated by: Zeus Gregory M.D. on 08/05/2020 at 12:55 Approved by: Zeus Gregory M.D. on 08/05/2020 at 12:55
[2020-08-05] MEDS: MIDAZOLAM 5 MG/5 ML VIAL IV (13:20)
[2020-08-05] MEDS: fentaNYL 100 MCG/2 ML INJ 50 MCG IV (13:20)
[2020-08-05] MEDS: BUPIVACAINE 0.25% (PF) VIAL 2 ML INJ (13:24)
[2020-08-05] MEDS: BETAMETHASONE 30 MG/5 ML MDV 6 MG INJ (13:25)
[2020-08-05] MEDS: DEXAMETHASONE 10 MG/ML VIAL 20 MG INJ (13:25)
[2020-08-05] MEDS: IOPAMIDOL 15 ML VIAL 3 ML INJ (13:26)
--- NOTE | 2020-08-05 13:32 | P.PCN_ITS ---
Date/Time/Diagnoses Date of procedure: 08/05/20 Time of procedure: 13:32 Pre-procedure diagnosis: 1. FORAMINAL STENOSIS WITH LE SYMPTOMS Post-procedure diagnosis: same Procedure Notes Procedure: 1. FLUOROSCOPICALLY GUIDED CONTRAST CONTROLLED TRANSFORAMINAL EPIDURAL STEROID INJECTION - RIGHT L4/5 TFESI Indications: Ophelia is referred by Dr. Garland for treatment of Foraminal Stenosis with Right LE Symptoms Physician: Luc Ibanez Total Fluoroscopy time (seconds): 7 Total sedation minutes: 12 Complications: none Procedure in detail & Post-procedure care: FINDINGS Foraminal Nerve Root Compression secondary to disc disease and facet hypertrophy DESCRIPTION OF PROCEDURE Following review of allergy and review of potential side effects and complications, including, but not necessarily limited to, infection, allergic reaction, local tissue breakdown, stroke, temporary or permanent nerve injury, paralysis, and possible , the patient indicated that the patient understood and agreed to proceed. An informed consent document was signed by the patient, witnessed by a nurse, and placed in the patient's chart. Additionally, other treatment options including medications, modalities, and physical therapy were reviewed with the patient. After review of previous anaesthesic history and IV conscious sedation the patient was deemed safe to proceed with today?s procedure with IV conscious sedation as ASA class II designation. Safety time-out was performed to confirm patient ID, procedure to be performed and site of procedure. IV sedation was accomplished with a combination of 2mg of Versed and 50mcg of Fentanyl was administered by the RN after DO order, titrated to patient comfort during the course of the procedure while the patient remained responsive to all verbal commands In the prone position following sterile prep and drape of the lumbar region, the Right L4/5 posterior neuroforamen was identified fluoroscopically. The skin was anesthetized via a 25-gauge 1.5-inch needle with 1% lidocaine solution. At this point, a 25-gauge 3.5-inch spinal needle was atraumatically introduced and advanced under fluoroscopic guidance through the posterior Right L4/5 neuroforamen to approximately the anterior aspect of the canal. Depth was confirmed on lateral view. Following negative aspiration, injection of approximately 1.5cc of Isovue 200 under live fluoroscopy in the AP view confirmed excellent flow along the nerve root, into the epidural space without vascular or intrathecal uptake observed Radiological data, including multiple fluoroscopic views of the lumbosacral spine, reveal a spinal needle at the right L4/5 posterior neuroforamen. Subsequent views show flow of contrast material flowing superiorly and inferiorly along the nerve root confirming epidural flow. Subsequently, a test dose of 1.5 cc of 1% lidocaine solution was administered and patient was observed for two minutes for signs or symptoms of complications, including abdominal pain, shortness of breath, bilateral upper or lower extremity weakness, nausea and vomiting, prior to steroid injection. At this point, a total of 3cc or 20mg of dexamethasone and 6mg of betamethasone was injected without incident. The procedure tolerated the procedure well without signs or symptoms of complications prior to transfer to the recovery area continued monitoring without incident. The patient was then transferred to the recovery area where they were observed for an appropriate time after the injection. The patient reported a VAS score of 7 prior to the procedure and a post- procedure VAS of 0. POST OP INSTRUCTIONS The patient was provided a Pain Log to continue to record their response to the target-specific procedure prior to follow-up visit with their referring physician. Additionally, specific post-injection care instructions and a contact number to our office were provided if concerns arise regarding possible complications associated with the procedure are suspected.
== END 2020-08-05 13:50 | disposition home or self-care (01) ==
LOC: RAD 12:14
PROVIDERS: PCP Internal Medicine; Referring Provider Physical Medicine & Rehabilitation; Visit Provider Physical Medicine & Rehabilitation
DX: M54.17 Radiculopathy, lumbosacral region (principal)
CPT/HCPCS: 64483; J0702; J1100; J2250; J3010

== ENCOUNTER → 2020-09-24 08:03 | Outpatient (CLI) | payer MEDICARE, OTHER, SELFPAY ==
--- NOTE | 2020-09-24 08:06 | DI.MRI.S_ITS ---
PROCEDURE: MR CERVICAL SPINE WO CON INDICATIONS: cervical radiculopathy TECHNIQUE: Noncontrast sagittal T1 spin echo and T2 fast spin echo, sagittal STIR, foraminal oblique sagittal T2 fast spin echo, and axial gradient echo or T2 fast spin echo through the cervical spine. COMPARISON: [facility], CR, XR CERVICAL SPINE 4V OR 5V, 07/30/2020, 8:59. FINDINGS: Image quality: Excellent. Alignment and Curvature: Loss of normal cervical lordosis. Mild kyphosis at C4-C6. Mild grade 1 anterolisthesis of C3 on C4 and C4 on C5. Mild grade 1 retrolisthesis of C6 on C7. Bone Marrow: Marrow demonstrates normal overall signal. Mild reactive signal within the endplates adjacent to the C3-C4, C4-C5, C5-C6, C6-C7, and C7-T1 intervertebral discs. Spinal Cord: Visualized spinal cord has normal size and signal. No cerebellar tonsillar herniation. Paraspinous Soft Tissues: No paravertebral masses. Prevertebral soft tissues are normal in thickness. C2-C3: Mild disc height loss and desiccation. Mild diffuse disc bulge. Moderate left and mild right facet and uncovertebral hypertrophy. Mild canal stenosis. Severe left and mild right foraminal stenosis. Left C3 nerve root compression. C3-C4: Mild disc height loss and desiccation. Mild diffuse disc bulge. Moderate left and mild right facet and uncovertebral hypertrophy. Moderate canal stenosis. Severe left and mild right foraminal stenosis. Left C4 nerve root compression. C4-C5: Moderate disc height loss and desiccation. Mild diffuse disc bulge. Moderate facet and uncovertebral hypertrophy bilaterally. Moderate canal stenosis. Moderate bilateral foraminal stenosis. C5-C6: Moderate disc desiccation. Mild disc height loss and diffuse disc bulge with superimposed broad-based left posterolateral and far lateral protrusion. Mild facet and uncovertebral hypertrophy bilaterally. Moderate to severe canal stenosis. Minimal cord flattening. Mild right and severe left foraminal stenosis. Left C6 nerve root compression. C6-C7: Moderate disc height loss and desiccation. Moderate diffuse disc bulge with superimposed broad-based right posterolateral and far lateral protrusion. Moderate facet and uncovertebral hypertrophy bilaterally. Severe canal stenosis. Mild cord flattening. Severe bilateral foraminal stenosis with bilateral C7 nerve root compression. C7-T1: Moderate disc height loss and desiccation. Mild diffuse disc bulge. Mild facet and uncovertebral hypertrophy bilaterally. Mild canal stenosis. Moderate left and mild right foraminal stenosis. IMPRESSION: 1. Multilevel degenerative disc and facet disease, as well as uncovertebral hypertrophy. 2. Multilevel canal stenoses, worst at C5-C6 and C6-C7 where there is mild cord flattening present. 3. Multilevel foraminal stenoses, worst at C2-C3, C3-C4, C5-C6, and C6-C7, where there is associated intraforaminal nerve root compression. Recommend correlation with clinical symptoms to ascertain relevance of this finding. Dictated by: Kush Sue M.D. on 09/24/2020 at 9:50 Approved by: Kush Sue M.D. on 09/24/2020 at 9:54
[2020-09-24 08:17] LABS: Add Manual Diff / Slide Review NO; Basophils Absolute Auto 0 /uL (0-100); Basophils Percent Auto 0.5 % (0-2); Eosinophils Absolute Auto 200 /uL (0-450); Eosinophils Percent Auto 3.3 % (2-4); Hematocrit 40.3 % (36-46); Hemoglobin 13.4 g/dL (12.0-16.0); Lymphocytes Absolute Auto 1500 /uL (1100-4500); Lymphocytes Percent Auto 22.4 % (25-40); Mean Corpuscular HGB Conc 33.3 % (30-36); Mean Corpuscular Hemoglobin 31.5 PG (26-34); Mean Corpuscular Volume 94.7 fL (80-100); Monocytes Absolute Auto 500 /uL (0-900); Monocytes Percent Auto 7.4 % (3-14); Neutrophils Absolute Auto 4500 /uL (1500-7000); Neutrophils Percent Auto 66.4 % (50-75); Platelet Count 265 X10^3/uL (150-400); Red Blood Cell Count 4.25 X10^6/uL (4.0-5.2); Red Cell Distribution Width 15.1 % (11.6-14.8); White Blood Cell Count 6.7 X10^3/uL (4.5-11.0)
[2020-09-24 18:12] LABS: Alanine Aminotransferase 54 IU/L (<35); Albumin 4.5 g/dL (3.5-5.0); Albumin Globulin Ratio 1.7 (1.0-2.8); Alkaline Phosphatase 85 U/L (38-126); Aspartate Aminotransferase 43 IU/L (14-36); BUN Creatinine Ratio 25.7 (6-22); Bilirubin Total 0.4 mg/dL (0.2-1.3); Blood Urea Nitrogen 19 mg/dL (7-17); Calcium 10.1 mg/dL (8.4-10.2); Carbon Dioxide 28 mmol/L (22-32); Chloride 101 mmol/L (98-107); Cholesterol 166 mg/dL (140-199); Estimated Glomerular Filt Rate > 60.0 mL/min (>60); Globulin 2.7 g/dL (1.7-4.1); Glucose 149 mg/dL (80-110); HDL Cholesterol 48 mg/dL (40-60); HEMOLYSIS < 15 (0-50); LDL Cholesterol Calculated 72 mg/dL (<100); Potassium 4.4 mmol/L (3.4-5.1); Sodium 140 mmol/L (137-145); Total Protein 7.2 g/dL (6.3-8.2); Triglycerides 231 mg/dL (35-150)
== END ==
PROVIDERS: PCP Internal Medicine; Referring Provider Internal Medicine Endocrinology, Diabetes & Metabolism; Visit Provider Physical Medicine & Rehabilitation
DX: M54.12 Radiculopathy, cervical region (principal); I10 Essential (primary) hypertension; M48.02 Spinal stenosis, cervical region; E78.00 Pure hypercholesterolemia, unspecified; N18.9 Chronic kidney disease, unspecified
CPT/HCPCS: 36415; 72141; 80053; 80061; 85025

== ENCOUNTER → 2020-10-11 13:11 | Outpatient (CLI) | payer MEDICARE, OTHER, SELFPAY ==
[2020-10-11 15:49] LABS: COVID19 -Nasal RAPID Negative (Negative)
== END ==
PROVIDERS: PCP Internal Medicine; Visit Provider Physical Medicine & Rehabilitation
DX: Z20.822 Contact with and (suspected) exposure to COVID-19 (principal)
CPT/HCPCS: 87635; C9803

== ENCOUNTER 2020-10-12 08:53 | Outpatient (CLI) | payer MEDICARE, OTHER, SELFPAY ==
[2020-10-12] VITALS (9 sets, daily range): BP systolic 91–129; BP diastolic 52–91; PULSE 77–84; RESP 11–18; TEMP 36.1; O2SAT 92–98
--- NOTE | 2020-10-12 08:57 | DI.RAD.S_ITS ---
PROCEDURE: PAIN C/T INTERLAMINAR INJECT INDICATIONS: SPINAL STENOSIS COMPARISON: [facility], MR, MR CERVICAL SPINE WO CON, 09/24/2020, 9:00. [facility], XA, PAIN L/S TRANSFORAMINAL INJECT, 08/05/2020, 13:22. FINDINGS: Fluoroscopic spot filming was performed to verify placement of a spinal needle at the C6-C7 level, as labeled on the films. Appropriate location of the needle tip was confirmed by injection of iodinated contrast. IMPRESSION: No significant intraprocedural abnormality. Dictated by: Zeus Gregory M.D. on 10/12/2020 at 10:08 Approved by: Zeus Gregory M.D. on 10/12/2020 at 10:09
[2020-10-12] MEDS: MIDAZOLAM 5 MG/5 ML VIAL IV (10:17)
[2020-10-12] MEDS: fentaNYL 100 MCG/2 ML INJ 50 MCG IV (10:17)
[2020-10-12] MEDS: IOPAMIDOL 15 ML VIAL 3 ML INJ (10:22)
[2020-10-12] MEDS: BUPIVACAINE 0.25% (PF) VIAL 2 ML INJ (10:22)
[2020-10-12] MEDS: DEXAMETHASONE 10 MG/ML VIAL 30 MG INJ (10:22)
--- NOTE | 2020-10-12 10:38 | PM.PROC.IR.1 ---
Date/Time/Diagnoses Pre-procedure diagnosis: 1. CERVICAL STENOSIS, 2. CERVICAL HNP WITH UPPER EXTREMITY RADICULAR FEATURES Post-procedure diagnosis: same Procedure Notes Procedure: 1. FLUORSCOPICALLY GUIDED CONTRAST CONTROLLED INTERLAMINAR EPIDURAL STEROID INJECTION - C6/7 TL JOSE ROBERTO Indications: Ophelia is referred by Dr. Garland for treatment of Cervical HNP with Upper Extremity Paresthesias. Physician: Luc Ibanez Total Fluoroscopy time (seconds): 38 Total sedation minutes: 17 Complications: none Procedure in detail & Post-procedure care: FINDINGS Cervical Stenosis due to disc deterioration and nerve root irritation and nerve root irritation DESCRIPTION OF PROCEDURE Fluoroscopically guided, contrast-controlled C6/7 translaminar epidural steroid injection with conscious sedation. Following review of allergy and review of potential side effects and complications, including, but not necessarily limited to, infection, allergic reaction, local tissue breakdown, temporary as well as permanent nerve injury, stroke, paralysis, and possible , the patient indicated that patient understood and agreed to proceed. An informed consent document was signed by the patient, witnessed by a nurse, and placed in the patient's chart. Additionally, other treatment options including modalities, medications, and physical therapy were reviewed with the patient. After review of previous anaesthesic history and IV conscious sedation the patient was deemed safe to proceed with today?s procedure with IV conscious sedation as ASA class II designation. Safety time-out was performed to confirm patient ID, procedure to be performed and site of procedure. IV sedation was accomplished with a combination of 2mg of Versed and 50mcg of Fentanyl administered by the RN after DO order, titrated to patient comfort during the course of the procedure while the patient remained responsive to all verbal commands. In the prone position, following sterile prep and drape of the cervical region, the C6/7 translaminar space was identified fluoroscopically. The skin was anesthetized via a 25-gauge 1.5-inch needle with 1% lidocaine solution. At this point, a 25-gauge, 2.5-inch short bevel spinal needle was atraumatically introduced and advanced under fluoroscopic guidance into epidural space at the C6/7 translaminar space. Depth was confirmed on lateral view. Radiological data, including multiple fluoroscopic views of the cervical spine, reveal a spinal needle at the C6/7 translaminar space. Lateral views then show placement of the needle in the epidural space. Subsequent views show contrast material flowing superiorly and inferiorly in the epidural space. DSA fluoroscopy with live contrast injection, once again, confirmed no vascular or intrathecal uptake. At this point, using loss of resistance technique with saline and air, the epidural space was entered. Following negative aspiration, injection of approximately 1.5 cc of Isovue-200 with live fluoroscopy in the AP view confirmed epidural flow in the epidural space without vascular or intrathecal uptake observed. Subsequently, a test dose of 1 cc of 1% lidocaine solution was injected and patient was observed for two minutes without signs or symptoms of complications, including abdominal pain, shortness of breath, bilateral upper or lower extremity weakness, nausea and vomiting, prior to steroid injection. At this point, 3cc or 30mg of dexamethasone was then injected without incident. The patient tolerated the procedure well without signs or symptoms of complications prior to being transferred to the recovery area for further monitoring, The patient was then transferred to the recovery area where they were observed for an appropriate period of time after the injection. The patient reported a VAS score of 6 prior to the procedure and a post-procedure VAS of 0. POST OP INSTRUCTIONS The patient was provided a Pain Log to continue to record their response to the target-specific procedure prior to follow-up visit with the referring provider. Additionally, specific post-injection care instructions and a contact number to our office were provided if concerns arise regarding possible complications associated with the procedure are suspected.
== END 2020-10-12 10:55 | disposition home or self-care (01) ==
LOC: RAD 08:57
PROVIDERS: PCP Internal Medicine; Referring Provider Physical Medicine & Rehabilitation; Visit Provider Physical Medicine & Rehabilitation
DX: M50.123 Cervical disc disorder at C6-C7 level with radiculopathy (principal)
CPT/HCPCS: 62321; 99152; J1100; J2250; J3010

== ENCOUNTER → 2021-09-06 11:10 | Outpatient (CLI) | payer MEDICARE, OTHER, SELFPAY ==
--- NOTE | 2021-09-06 11:12 | DI.RAD.S_ITS ---
PROCEDURE: XR HIP W PEL IF DONE TRICE MIN 4V INDICATIONS: Right hip DJD TECHNIQUE: AP pelvis with lateral view(s) of the bilateral hip(s). COMPARISON: None. FINDINGS: Bones: No acute fracture or dislocation. There is mild bilateral hip joint space narrowing and acetabular osteophytes. No suspicious bony lesions. No femoral head sclerosis. Soft tissues: The visualized bowel gas pattern is normal. No suspicious soft tissue calcifications. IMPRESSION: Mild degenerative change of the bilateral hip joints. Dictated by: Isabella Pittman M.D. on 09/06/2021 at 11:53 Approved by: Isabella Pittman M.D. on 09/06/2021 at 11:54
== END ==
PROVIDERS: PCP Internal Medicine; Referring Provider Physical Medicine & Rehabilitation; Visit Provider Physical Medicine & Rehabilitation
DX: M16.11 Unilateral primary osteoarthritis, right hip (principal)
CPT/HCPCS: 73522

== ENCOUNTER → 2021-09-12 10:02 | Outpatient (CLI) | payer MEDICARE, OTHER, SELFPAY ==
[2021-09-12 12:55] LABS: COVID19 -Nasal RAPID Negative (Negative)
== END ==
PROVIDERS: PCP Internal Medicine; Visit Provider Physical Medicine & Rehabilitation
DX: Z20.822 Contact with and (suspected) exposure to COVID-19 (principal)
CPT/HCPCS: 87635; C9803

== ENCOUNTER 2021-09-13 08:00 | Outpatient (CLI) | payer MEDICARE, OTHER, SELFPAY ==
[2021-09-13] VITALS (9 sets, daily range): BP systolic 107–143; BP diastolic 74–88; PULSE 79–89; RESP 12–20; TEMP 36.7; O2SAT 93–97
--- NOTE | 2021-09-13 08:03 | DI.RAD.S_ITS ---
PROCEDURE: PAIN L/S TRANSFORAMINAL INJECT INDICATIONS: SPONDYLOSIS COMPARISON: None. FINDINGS: Fluoroscopic spot filming was performed to verify placement of spinal needles at the right L4-5 neural foramen level(s), as labeled on the films. Appropriate location(s) of the needle tip(s) was confirmed by injection of iodinated contrast. IMPRESSION: Access needle at the right L4-L5 neural foramen for transforaminal epidural steroid injection. Dictated by: Sandy Chavarria MD, PhD on 09/13/2021 at 12:59 Approved by: Sandy Chavarria MD, PhD on 09/13/2021 at 13:07
[2021-09-13] MEDS: fentaNYL 100 MCG/2 ML INJ (09:58)
[2021-09-13] MEDS: MIDAZOLAM 5 MG/5 ML VIAL IV (09:58)
[2021-09-13] MEDS: BUPIVACAINE 0.25% (PF) VIAL 2 ML INJ (10:01)
[2021-09-13] MEDS: BETAMETHASONE 30 MG/5 ML MDV 6 MG INJ (10:01)
[2021-09-13] MEDS: IOPAMIDOL 15 ML VIAL 3 ML INJ (10:01)
[2021-09-13] MEDS: DEXAMETHASONE 10 MG/ML VIAL 20 MG INJ (10:01)
--- NOTE | 2021-09-13 10:10 | P.PCN_ITS ---
Date/Time/Diagnoses Date of procedure: 09/13/21 Time of procedure: 10:10 Pre-procedure diagnosis: 1. FORAMINAL STENOSIS WITH LE SYMPTOMS Post-procedure diagnosis: same Procedure Notes Procedure: 1. FLUOROSCOPICALLY GUIDED CONTRAST CONTROLLED TRANSFORAMINAL EPIDURAL STEROID INJECTION - RIGHT L4/5 TFESI Indications: Ophelia is referred by Dr. Bolaños for treatment of Foraminal Stenosis with Right LE Symptoms Physician: Luc Ibanez Total Fluoroscopy time (seconds): 6 Total sedation minutes: 8 Complications: none Procedure in detail & Post-procedure care: FINDINGS Foraminal Nerve Root Compression secondary to disc disease and facet hypertrophy DESCRIPTION OF PROCEDURE Following review of allergy and review of potential side effects and complications, including, but not necessarily limited to, infection, allergic reaction, local tissue breakdown, stroke, temporary or permanent nerve injury, paralysis, and possible , the patient indicated that the patient understood and agreed to proceed. An informed consent document was signed by the patient, witnessed by a nurse, and placed in the patient's chart. Additionally, other treatment options including medications, modalities, and physical therapy were reviewed with the patient. After review of previous anaesthesic history and IV conscious sedation the patient was deemed safe to proceed with today?s procedure with IV conscious sedation as ASA class II designation. Safety time-out was performed to confirm patient ID, procedure to be performed and site of procedure. IV sedation was accomplished with a combination of 2mg of Versed and 50mcg of Fentanyl was administered by the RN after DO order, titrated to patient comfort during the course of the procedure while the patient remained responsive to all verbal co mmands In the prone position following sterile prep and drape of the lumbar region, the right L4/5 posterior neuroforamen was identified fluoroscopically. The skin was anesthetized via a 25-gauge 1.5-inch needle with 1% lidocaine solution. At this point, a 25-gauge 3.5-inch spinal needle was atraumatically introduced and advanced under fluoroscopic guidance through the posterior right L4/5 n euroforamen to approximately the anterior aspect of the canal. Depth was confirmed on lateral view. Following negative aspiration, injection of approximately 1.5cc of Isovue 200 under live fluoroscopy in the AP view confirmed excellent flow along the nerve root, into the epidural space without vascular or intrathecal uptake observed Radiological data, including multiple fluoroscopic views of the lumbosacral spine, reveal a spinal needle at the right L4/5 posterior neuroforamen. Subsequent views show flow of contrast material flowing superiorly and inferiorly along the nerve root confirming epidural flow. Subsequently, a test dose of 1.5 cc of 1% lidocaine solution was administered and patient was observed for two minutes for signs or symptoms of complications, including abdominal pain, shortness of breath, bilateral upper or lower extremity weakness, nausea and vomiting, prior to steroid injection. At this point, a total of 3cc or 20mg of dexamethasone and 6mg of betamethasone was injected without incident. The procedure tolerated the procedure well without signs or symptoms of complications prior to transfer to the recovery area continued monitoring without incident. The patient was then transferred to the recovery area where they were observed for an appropriate time after the injection. The patient reported a VAS score of 7 prior to the procedure and a post-p rocedure VAS of 0. POST OP INSTRUCTIONS The patient was provided a Pain Log to continue to record their response to the target-specific procedure prior to follow-up visit with their referring physician. Additionally, specific post-injection care instructions and a contact number to our office were provided if concerns arise regarding possible complications associated with the procedure are suspected.
== END 2021-09-13 10:35 | disposition home or self-care (01) ==
PROVIDERS: PCP Internal Medicine; Referring Provider Physical Medicine & Rehabilitation; Visit Provider Physical Medicine & Rehabilitation
DX: M48.061 Spinal stenosis, lumbar region without neurogenic claudication (principal); M51.16 Intervertebral disc disorders with radiculopathy, lumbar region
CPT/HCPCS: 64483; J0702; J1100; J2250; J3010

== ENCOUNTER 2022-04-27 14:13 | Outpatient (CLI) | payer MEDICARE, OTHER, SELFPAY ==
[2022-04-27] VITALS (8 sets, daily range): BP systolic 120–141; BP diastolic 74–95; PULSE 72–76; RESP 16–22; TEMP 36.6; O2SAT 96–100
--- NOTE | 2022-04-27 14:16 | DI.RAD.S_ITS ---
PROCEDURE: PAIN L/SI FACET INJ/BLK 1STL INDICATIONS: SPONDYLOSIS COMPARISON: [facility], , PAIN L/S TRANSFORAMINAL INJECT, 09/13/2021, 10:01. FINDINGS: Fluoroscopic spot filming was performed to verify placement of spinal needles on the right at the L2-L3, L3-L4, and L4-L5 levels, as labeled on the films. Appropriate location of the needle tips was confirmed by injection of iodinated contrast. IMPRESSION: Intraprocedural examination demonstrating appropriate positions of the needles. Dictated by: Zeus Gregory M.D. on 04/27/2022 at 15:47 Approved by: Zeus Gregory M.D. on 04/27/2022 at 15:47
[2022-04-27] MEDS: MIDAZOLAM 2 MG/2 ML VIAL IV (15:10)
[2022-04-27] MEDS: IOPAMIDOL 15 ML VIAL 3 ML INJ (15:16)
[2022-04-27] MEDS: BUPIVACAINE 0.5% MDV 5 ML SUBCUT (15:17)
[2022-04-27] MEDS: BETAMETHASONE 30 MG/5 ML MDV 12 MG INJ (15:17)
--- NOTE | 2022-04-27 15:28 | P.PCN_ITS ---
Date/Time/Diagnoses Date of procedure: 04/27/22 Time of procedure: 15:28 Pre-procedure diagnosis: 1. FACET ARTHROPATHY, 2. AXIAL LBP, 3. MULTILEVEL DDD Post-procedure diagnosis: same Procedure Notes Procedure: 1. FLUOROSCOPICALLY GUIDED CONTRAST CONTROLLED FACET JOINT INJECTIONS RIGHT L2/3, L3/4, L4/5 Indications: Ophelia is referred by Dr. Bolaños for treatment of Axial LBP Physician: Luc Ibanez Total Fluoroscopy time (seconds): 16 Total sedation minutes: 13 Complications: none Procedure in detail & Post-procedure care: FINDINGS Multilevel Facet Arthropathy with Clinically significant axial LBP DESCRIPTION OF PROCEDURE Fluoroscopically guided, contrast-controlled right L2/3, L3/4, L4/5 facet joint injections. Following review of allergy and review of potential side effects and complications, including, but not necessarily limited to, infection, allergic reaction, local tissue breakdown, stroke, temporary or permanent nerve injury, paralysis, and possible , the patient indicated that the patient understood and agreed to proceed. An informed consent document was signed by the patient, witnessed by a nurse, and placed in the patient's chart. Additionally, other treatment options including medications, modalities, and physical therapy were reviewed with the patient. After review of previous anaesthesic history and IV conscious sedation the elle ent was deemed safe to proceed with today?s procedure with IV conscious sedation as ASA class II designation. Safety time-out was performed to confirm patient ID, procedure to be performed and site of procedure. IV sedation was accomplished with a combination of 2mg of Versed administered by the RN after DO order, titrated to patient comfort during the course of the procedure while the patient remained responsive to all verbal commands. In the prone position, following sterile prep and drape of the lumbar region, the posterior aspect of the right L2/3, L3/4, L4/5 facet joints were identified fluoroscopically. The skin was anesthetized via a 25-gauge 1.5-inch needle with 1% lidocaine solution into the corresponding facet joints. At this point, a 22- gauge 3.5-inch spinal needle was atraumatically introduced and advanced under fluoroscopic guidance into the corresponding facet joints. Following negative aspiration, injections of approximately 0.2-cc of Isovue 200 confirmed interarticular placement without vascular uptake. Radiological data, including multiple fluoroscopic views of the lumbosacral spine, reveal a spinal needle at the right L2/3, L3/4, L4/5 facet joints. Subsequent views show flow of contrast material both superiorly and inferiorly within the joint space without vascular or intrathecal uptake. At this point, a total of 0.5cc including a mixture of 0.25 cc Marcaine and 0.25cc betamethasone was injected without complication into each of the corresponding facet joints. The patient tolerated the procedure well without signs or symptoms of complications prior to transfer to the recovery area for further monitoring. The patient was then transferred to the recovery area where they were observed for an appropriate period of time after the injection. The patient reported a VAS score of 7 prior to the procedure and a post-procedure VAS of 0. POST OP INSTRUCTIONS The patient was provided a Pain Log to continue to record their response to the target-specific procedure prior to follow-up visit with their referring physician. Additionally, specific post-injection care instructions and a contact number to our office were provided if concerns arise regarding possible complications associated with the procedure are suspected.
== END 2022-04-27 15:45 | disposition home or self-care (01) ==
LOC: RAD 14:15
PROVIDERS: PCP Internal Medicine; Referring Provider Physical Medicine & Rehabilitation; Visit Provider Physical Medicine & Rehabilitation
DX: M47.816 Spondylosis without myelopathy or radiculopathy, lumbar region (principal); M51.36 Other intervertebral disc degeneration, lumbar region
CPT/HCPCS: 64493; 64494; 64495; 99152; J0702; J2250

== ENCOUNTER 2022-11-23 12:33 | Outpatient (CLI) | payer MEDICARE, OTHER, SELFPAY ==
[2022-11-23] VITALS (8 sets, daily range): BP systolic 115–158; BP diastolic 73–101; PULSE 69–78; RESP 15–24; TEMP 36.7; O2SAT 92–97
--- NOTE | 2022-11-23 12:38 | DI.RAD.S_ITS ---
PROCEDURE: PAIN L/SI FACET INJ/BLK 1STL INDICATIONS: spondylosis COMPARISON: [facility], , PAIN L/SI FACET INJ/BLK 1STL, 04/27/2022, 15:16. FINDINGS: Fluoroscopic spot filming was performed to verify placement of spinal needles at the right L2, L3, L4 and L5 level(s), as labeled on the films. Appropriate location(s) of the needle tip(s) was confirmed by injection of iodinated contrast. IMPRESSION: Fluoroscopic guidance Approved by: Cody Spivye M.D. on 11/23/2022 at 20:32
--- NOTE | 2022-11-23 13:11 | PM.PROC.IR.1 ---
Date/Time/Diagnoses Date of procedure: 11/23/22 Time of procedure: 13:33 Pre-procedure diagnosis: 1. FACET ARTHROPATHY Post-procedure diagnosis: same Procedure Notes Procedure: 1. Right L2, L3, L4, L5 MB BLOCKS Indications: Ophelia is referred by Dr. Bolaños for treatment of Right Axial LBP. Physician: Luc Ibanez Total Fluoroscopy time (seconds): 10 Total sedation minutes: 14 Complications: none Procedure in detail & Post-procedure care: DESCRIPTION OF PROCEDURE Fluoroscopically guided, contrast-controlled right L2, L3, L4, L5 medial branch blocks with 0.5cc of 0.5% Marcaine. Following review of allergy and review of potential side effects and complications, including, but not necessarily limited to, infection, allergic reaction, local tissue breakdown, nerve injury, paralysis, stroke and possible , the patient indicated that the patient understood and agreed to proceed. An informed consent document was signed by the patient, witnessed by a nurse, and placed in the patient's chart. After review of previous anaesthesic history and IV conscious sedation the patient was deemed safe to proceed with today?s procedure with IV conscious sedation as ASA class II designation. Safety time-out was performed to confirm patient ID, procedure to be performed and site of procedure. IV sedation was accomplished with a combination of 2mg of Versed was administered by the RN after DO order, titrated to patient comfort during the course of the procedure while the patient remained responsive to all verbal commands In the prone position, following sterile prep and drape of the lumbar region, the right L2, L3, L4, L5 anatomical location of the medial branch of the dorsal ramus was identified fluoroscopically. Subsequently an anesthetic skin wheal using 1% lidocaine solution was initiated at each of the anatomical spots. Subsequently then a 22-gauge 3.5-inch spinal needle was atraumatically introduced and advanced under fluoroscopic guidance at each of the corresponding sites at the right L2, L3, L4, L5 MB. After negative aspiration, 0.2 cc of Isovue 200 was injected, confirming placement without vascular or intrathecal uptake. Subsequently then 0.5cc of 0.5% Marcaine solution was injected at each of the corresponding sites at the right L2, L3, L4, L5 medial branch locations. The patient tolerated the procedure well without signs or symptoms of complications. The procedure tolerated the procedure well without signs or symptoms of complications prior to transfer to the recovery area continued monitoring without incident. Post-procedure, the patient was monitored initiating provocative activities to measure the amount of relief from block of the facetogenic pain. The patient reported a VAS of 7 prior to the procedure and a post-procedure VAS of 1. It has been a pleasure to assist in the diagnostic and therapeutic care of your patient. POST OP INSTRUCTIONS The patient was provided with a Pain Log to complete over the next several hours and subsequent days prior to the patient's follow up with the ordering physician. If the patient has mathematics faculty member relief to the solution applied, then they may be a candidate for medial branch rhizotomy. The patient is aware, was provided, once again, with a Pain Log and will follow up with the referring physician for review and clinical correlation.
[2022-11-23] MEDS: MIDAZOLAM 2 MG/2 ML VIAL IV (13:15)
[2022-11-23] MEDS: BUPIVACAINE 0.5% (PF) 10 ML VIAL 5 ML INJ (13:22)
[2022-11-23] MEDS: LIDOCAINE 1% 20 ML 5 ML INJ (13:22)
[2022-11-23] MEDS: IOPAMIDOL 15 ML VIAL 3 ML INJ (13:22)
== END 2022-11-23 13:48 | disposition home or self-care (01) ==
PROVIDERS: PCP Internal Medicine; Referring Provider Physical Medicine & Rehabilitation; Visit Provider Physical Medicine & Rehabilitation
DX: M47.816 Spondylosis without myelopathy or radiculopathy, lumbar region (principal)
CPT/HCPCS: 64493; 64494; 64495; 99152; J2250

== ENCOUNTER → 2024-05-26 10:30 | Outpatient (CLI) | payer MEDICARE, OTHER, SELFPAY ==
--- NOTE | 2024-05-26 10:32 | DI.RAD.S_ITS ---
PROCEDURE: XR LUMBAR SPINE MIN 4V INDICATIONS: BACK PAIN TECHNIQUE: 5 views of the lumbar spine were acquired, including bilateral oblique views. COMPARISON: [facility], , XR LUMBAR SPINE MIN 4V, 12/18/2019, 10:09. FINDINGS: Bones: 5 nonrib-bearing vertebrae are present. There is moderate dextroscoliosis of lumbar spine with apex at L2 level and Cotto angle measures 39.9?.. No vertebral body compression fractures. Degenerative endplate changes, loss of disc height and bilateral facet arthrosis throughout lumbar spine is seen. No suspicious bony lesions. Soft tissues: Overlying bowel gas pattern is normal. No suspicious soft tissue calcifications. Oblique images: No pars defects. IMPRESSION: 1. Moderate dextroscoliosis of lumbar spine centered at L2 level as above. No acute compression fracture or significant spondylolisthesis. 2. Moderate degenerative disc disease throughout lumbar spine. No gross pars defects. Dictated by: Dung Gallegos M.D. on 05/26/2024 at 11:26 Approved by: Dung Gallegos M.D. on 05/26/2024 at 11:29
--- NOTE | 2024-05-26 10:32 | DI.RAD.S_ITS ---
PROCEDURE: XR HIP W PEL IF DONE TRICE MIN 4V INDICATIONS: LEFT HIP PAIN TECHNIQUE: AP pelvis with lateral view(s) of the bilateral hip(s). COMPARISON: [facility], CR, XR HIP W PEL IF DONE TRICE 3TO4V, 09/06/2021, 11:17. FINDINGS: Bones: No fractures or dislocations. Nlsy-hy-bnkocnld bilateral hip joint osteoarthritic changes are seen with joint space narrowing, subchondral sclerosis and small marginal osteophyte formation progressed since 2021 study. No evidence of avascular necrosis of femoral head. Pelvic ring appears intact. No suspicious bony lesions. Degenerative disc disease in visualized lower lumbar spine is seen. Soft tissues: The visualized bowel gas pattern is normal. No suspicious soft tissue calcifications. IMPRESSION: Symmetric appearing [id number] bilateral hip joint osteoarthritis. No acute fracture or dislocation. No evidence of avascular necrosis. Dictated by: Dung Gallegos M.D. on 05/26/2024 at 11:23 Approved by: Dung Gallegos M.D. on 05/26/2024 at 11:26
== END ==
PROVIDERS: Referring Provider Physical Medicine & Rehabilitation; Visit Provider Physical Medicine & Rehabilitation
DX: M51.16 Intervertebral disc disorders with radiculopathy, lumbar region (principal); M47.27 Other spondylosis with radiculopathy, lumbosacral region; M46.96 Unspecified inflammatory spondylopathy, lumbar region; M41.20 Other idiopathic scoliosis, site unspecified; M16.0 Bilateral primary osteoarthritis of hip; M25.552 Pain in left hip; M75.42 Impingement syndrome of left shoulder; M54.12 Radiculopathy, cervical region; Z96.652 Presence of left artificial knee joint
CPT/HCPCS: 72110; 73522; 99214

== ENCOUNTER → 2024-06-06 13:04 | Outpatient (CLI) | payer MEDICARE, OTHER, SELFPAY ==
--- NOTE | 2024-06-06 13:05 | DI.MRI.S_ITS ---
PROCEDURE: MR LUMBAR SPINE WO CON INDICATIONS: Scoliosis with progressive stenosis TECHNIQUE: Noncontrast sagittal T1 spin echo and T2 fast echo, sagittal STIR, and T2 fast spin echo through the lumbar spine. In cases with scoliosis, additional coronal T2 fast spin echo may be performed. COMPARISON: [facility], MR, MR LUMBAR SPINE WO CON, 12/31/2019, 16:19. FINDINGS: Image quality: Excellent Moderate dextroscoliosis at the thoracolumbar junction, centered at L2. Mild anterolisthesis of T9 on T10. Mild retrolisthesis of L2 on L3. Grade 1 anterolisthesis of L4 on L5, and L5 on S1. Right pars defect at L5-S1. Vertebral body height of the lumbar spine are well maintained. Marked fibrovascular end plate change at L5-S1, partially visualized, new from prior exam. Conus terminates at the level of L1-2, and is unremarkable. Right neural foraminal stenosis: Mild at T10-T11, L3-4, moderate at L4-5, severe at L5-S1. Left neural foraminal stenosis: Mild at T9-10, mild at T12-L1, L2-3, L3-4, L4-5. Axial images: T12-L1: Disc bulge. Mild bilateral facet arthropathy. Mild central canal stenosis. L1-2: Disc bulge. Mild bilateral facet arthropathy. No central canal stenosis. L2-3: Disc bulge. Mild bilateral facet arthropathy. No central canal stenosis. L3-4: Disc bulge. Moderate bilateral facet arthropathy. Moderate central canal stenosis. L4-5: Disc bulge. Severe bilateral facet arthropathy. Mild central canal stenosis. L5-S1: Disc bulge, asymmetric to the right. Severe bilateral facet arthropathy. No central canal stenosis. Posterior decompression. Visualized sacrum is intact. No abdominal aorta aneurysm. Left renal cyst. IMPRESSION: 1. Multilevel degenerative changes lumbar spine, most pronounced at L3-4 where there is moderate central canal stenosis and mild bilateral neural from stenosis, grossly unchanged from prior exam. 2. Severe right neural foraminal stenosis at L5-S1, unchanged. 3. Interval development of marked fibrovascular end plate change at L5-S1. Dictated by: Rosalia Oliva M.D. on 06/06/2024 at 16:44 Approved by: Rosalia Oliva M.D. on 06/06/2024 at 16:57
== END ==
PROVIDERS: Referring Provider Physical Medicine & Rehabilitation; Visit Provider Physical Medicine & Rehabilitation
DX: M47.26 Other spondylosis with radiculopathy, lumbar region (principal); M47.27 Other spondylosis with radiculopathy, lumbosacral region; M48.061 Spinal stenosis, lumbar region without neurogenic claudication; M48.07 Spinal stenosis, lumbosacral region
CPT/HCPCS: 72148

== ENCOUNTER 2024-07-15 13:27 | Outpatient (CLI) | payer MEDICARE, OTHER, SELFPAY ==
[2024-07-15] VITALS (7 sets, daily range): BP systolic 110–147; BP diastolic 67–83; PULSE 70–78; RESP 16–18; TEMP 36.4; O2SAT 94–100
--- NOTE | 2024-07-15 13:28 | DI.RAD.S_ITS ---
PROCEDURE: PAIN L INTERLAMINAR/CAUDAL INJ INDICATIONS: L4-5 translaminar JOSE ROBERTO COMPARISON: [facility], , PAIN L INTERLAMINAR/CAUDAL INJ, 04/22/2020, 14:23. FINDINGS/IMPRESSION: Fluoroscopic spot filming was performed to verify placement of spinal needles at the L4-5 level(s), as labeled on the films. Appropriate location(s) of the needle tip(s) was confirmed by injection of iodinated contrast. Dictated by: Mita Menard M.D. on 07/15/2024 at 18:43 Approved by: Mita Menard M.D. on 07/15/2024 at 18:43
[2024-07-15] MEDS: MIDAZOLAM 2 MG/2 ML VIAL IV (14:55)
[2024-07-15] MEDS: BETAMETHASONE 30 MG/5 ML MDV 12 MG INJ (14:59)
[2024-07-15] MEDS: iopamidoL 15 ML VIAL 3 ML INJ (14:59)
[2024-07-15] MEDS: DEXAMETHASONE 10 MG/ML VIAL 20 MG INJ (15:00)
[2024-07-15] MEDS: BUPIVACAINE 0.25% (PF) VIAL 2 ML INJ (15:01)
--- NOTE | 2024-07-15 15:12 | P.PCN_ITS ---
Date/Time/Diagnoses Date of procedure: 07/15/24 Time of procedure: 15:12 Pre-procedure diagnosis: 1. HNP WITH RADICULAR FEATURES, 2. MULTILEVEL CENTRAL STENOSIS, Post-procedure diagnosis: same Procedure Notes Procedure: 1. FLUOROSCOPICALLY GUIDED CONTRAST CONTROLLED INTERLAMINAR EPIDURAL STEROID INJECTION -L4/5 Indications: Ophelia is referred for treatment of Bilateral Foraminal Stenosis R>L LE symptoms. Physician: Luc Ibanez Total Fluoroscopy time (seconds): 7 Total sedation minutes: 14 Complications: none Procedure in detail & Post-procedure care: FINDINGS Multilevel Central Spinal Stenosis with Nerve Root Compression DESCRIPTION OF PROCEDURE Fluoroscopically guided, contrast-controlled L4/5 translaminar epidural steroid injection. Following review of allergy and review of potential side effects and complications, including, but not necessarily limited to, infection, allergic reaction, local tissue breakdown, temporary as well as permanent nerve injury, paralysis, stroke and possible , the patient indicated that the patient understood and agreed to proceed. An informed consent document was signed by the patient, witnessed by a nurse, and placed in the patient's chart. Additionally, other treatment options including modalities, medications, and physical therapy were reviewed with the patient. After review of previous anaesthesic history and IV conscious sedation the patient was deemed safe to proceed with today?s procedure with IV conscious sedation as ASA class II designation. Safety time-out was performed to confirm patient ID, procedure to be performed and site of procedure. IV sedation was accomplished with a combination of 2mg of Versed was administered by the RN after DO order, titrated to patient comfort during the course of the procedure while the patient remained responsive to all verbal commands In the prone position, following sterile prep and drape of the lumbar region, the L4/5 translaminar space was identified fluoroscopically. The skin was anesthetized via a 25-gauge, 1.5inch needle with 1% lidocaine solution. At this point, a 22-gauge short bevel spinal needle was atraumatically introduced and advanced under fluoroscopic guidance into the region of the L4/5 translaminar space. Depth was confirmed on lateral view. Radiological data, including multiple fluoroscopic views of the lumbar spine, reveal a spinal needle at the L4/5 translaminar space. Lateral views then show placement of the needle in the epidural space. Subsequent views show contrast material flowing superiorly and inferiorly in the epidural space. No vascular or intrathecal uptake is observed. At this point, using loss of resistance technique with saline and air, the epidural space was entered. This was confirmed following negative aspiration with injection of approximately 1.5cc of Isovue 200, showing excellent epidural flow without vascular or intrathecal uptake. At this point, 1cc of 1% lidocaine solution combined with 2cc or 10mg of dexamethasone and 6mg betamethasone was injected without incident. The patient tolerated the procedure well without signs or symptoms of complications prior to transfer to the recovery area continued monitoring without incident. The patient was then transferred to the recovery area where they were observed for an appropriate period of time after the injection. The patient reported a VAS score of 8 prior to the procedure and a post- procedure VAS of 1. POST OP INSTRUCTIONS The patient was provided a Pain Log to continue to record their response to the target-specific procedure prior to follow-up visit with their referring physician. Additionally, specific post-injection care instructions and a contact number to our office were provided if concerns arise regarding possible complications associated with the procedure are suspected.
== END 2024-07-15 15:20 | disposition home or self-care (01) ==
PROVIDERS: Referring Provider Physical Medicine & Rehabilitation; Visit Provider Physical Medicine & Rehabilitation
DX: M51.16 Intervertebral disc disorders with radiculopathy, lumbar region (principal); M48.061 Spinal stenosis, lumbar region without neurogenic claudication
CPT/HCPCS: 62323; 99152; J0702; J1100; J2250; J3490